=== PATIENT | female | born 1980 | race Caucasian/White ===

== ENCOUNTER 2019-04-17 23:27 | Observation (INO) | payer OTHER, SELFPAY ==
[2019-04-17 23:27] VITALS: BP 144/87; PULSE 91; RESP 16; TEMP 36.9; O2SAT 100
[2019-04-17 23:33] VITALS: BP 144/87; PULSE 67; RESP 17; TEMP 37.2; O2SAT 100
--- NOTE | 2019-04-17 23:33 | DI.CT.S_ITS ---
PROCEDURE: CT HEAD/BRAIN WO CON INDICATIONS: stroke, TPA candidate. facial weakness, arm and leg weakness TECHNIQUE: Noncontrast 4.5 mm thick angled axial sections acquired from the foramen magnum to the vertex, with coronal and sagittal reformats. For radiation dose reduction, the following was used: automated exposure control, adjustment of mA and/or kV according to patient size. COMPARISON: None. FINDINGS: Image quality: Excellent. CSF spaces: Basal cisterns are patent. No extra-axial fluid collections. Ventricles are normal in size and shape. Brain: No midline shift. No intracranial masses or hemorrhage. Robertson-white matter interface is normal. Skull and face: Calvarium and visualized facial bones are intact, without suspicious lesions. Sinuses: Visualized sinuses and mastoids are clear. IMPRESSION: No acute intracranial disease process. Dictated by: Apryl Ricci MD, PhD on 04/18/2019 at 7:21 Approved by: Apryl Ricci MD, PhD on 04/18/2019 at 7:22
--- NOTE | 2019-04-17 23:34 | DI.CT.S_ITS ---
PROCEDURE: CT ANGIO HEAD AND NECK INDICATIONS: right sided stroke findings TECHNIQUE: Pre-contrast 4.5 mm thick sections acquired from the foramen magnum to the vertex. After the administration of intravenous contrast, 1 mm thick sections acquired from the aortic arch through the [place]. Post-contrast 4.5 mm thick sections then re-acquired from the foramen magnum to the vertex. 3-dimensional uylrcrc-lpbknrjek-rmpqnfdhgi (MIP) and/or volume rendering reformats were acquired of the central intracranial vasculature and neck separately. COMPARISON: [facility], CT, CT HEAD/BRAIN WO CON, 04/17/2019, 23:34. FINDINGS: Image quality: Excellent. BRAIN: CSF spaces: Ventricles are normal in size and shape. Basal cisterns are patent. No extra-axial fluid collections. Brain: No midline shift. No intracranial bleeds or masses. Robertson-white matter interface appears intact. Skull and face: Calvarium and facial bones appear intact, without suspicious lesions. Orbits appear normal. Sinuses: Mucous retention cyst versus polyp noted in the right maxillary sinus. The mastoids are clear. HEAD CT ANGIOGRAPHY: Anterior circulation: Intracranial internal carotid arteries are normal in size and flow. The flow within the paired anterior cerebral arteries is normal and symmetric. The flow within the middle cerebral arteries is normal and symmetric. The anterior communicating artery is seen. No aneurysms are seen. Posterior circulation: Visualized portions of the vertebral arteries demonstrate normal caliber, and join to form a normal appearing basilar artery. Flow within the posterior cerebral arteries is normal and symmetric. No aneurysms are seen. NECK CT ANGIOGRAPHY: Carotid system: The great vessels demonstrate a conventional anatomy as they arise from the aortic arch. The origins of the common carotid arteries appear patent. The common carotid arteries demonstrate normal caliber and courses. The bifurcation regions are both widely patent. The internal carotid arteries demonstrate normal calibers and courses. Dural sinuses demonstrate normal postcontrast enhancement. Posterior circulation: The origins of the vertebral arteries both appear widely patent. The more superior extracranial portions of both vertebral arteries also demonstrate normal courses and calibers. They join to form a normal appearing basilar artery. Soft tissues: Visualized neck soft tissues demonstrate no suspicious abnormalities. Bones: No suspicious bony lesions. Visualized cervical spine appears normally aligned. IMPRESSION: 1. No acute intracranial disease process. 2. No large vessel occlusion, vascular stenosis, vascular dissection or aneurysm. Any quantitative measurements of stenosis were performed using NASCET criteria. Dictated by: Apryl Ricci MD, PhD on 04/18/2019 at 8:34 Approved by: Apryl Ricci MD, PhD on 04/18/2019 at 8:39
--- NOTE | 2019-04-17 23:35 | ED.NEUROSD ---
HPI - Neuro Symptoms/Deficit General Chief Complaint: Neuro Symptoms/Deficit Stated Complaint: Left sided numbness and facial droop Time Seen by Provider: 04/17/19 23:28 Source: patient and EMS Mode of arrival: EMS Limitations: no limitations History of Present Illness HPI Narrative: 38-year-old female nonsmoker with history of protein S deficiency presents by EMS with a chief complaint of neurologic symptoms which started promptly this evening at 2215. Code stroke activated. BEFAST positive, LAMS 3. Patient denies any injury or pain. Patient's chief complaints are of right-sided facial numbness, weakness with slurred speech as well as right arm numbness and tingling and right leg tingling. She denies any recent injuries, history of bleeding problems or use of blood thinners. Onset (ago): hour(s) Last Observed Normal: 22:15 Timing confirmed by: spouse Location: speech, right face, right arm and right leg History of same: No Severity: moderate Quality: weak, numb and tingling Relieving factors: none Exacerbating factors: none Context: sudden onset On Anticoagulants: No Associated symptoms: denies other symptoms Treatments Prior to Arrival: none Related Data Home Medications Medication Instructions Recorded Confirmed [B12] 1 tab SUBLINGUAL DIRECTED #0 06/21/11 04/18/19 amitriptyline 10 mg PO PRN PRN 04/18/19 04/18/19 cyanocobalamin (vitamin B-12) 1,000 mcg IM DIRECTED 04/18/19 04/18/19 hydrocodone-acetaminophen 1 tab PO PRN PRN 04/18/19 04/18/19 Allergies Allergy/AdvReac Type Severity Reaction Status Date / Time From FLAGYL Allergy Unknown MEMORY LOSS Uncoded 11/22/17 12:14 PCN (PENICILLIN) Allergy Unknown HIVES Uncoded 11/22/17 12:14 Review of Systems Constitutional Constitutional: Denies chills, Denies fatigue, Denies fever(s), Denies frequent falls, Denies lethargy and Reports weakness Eyes Eyes: Denies change in vision, Denies eye discharge, Denies irritation and Denies loss of vision ENT Ears, Nose, Mouth, and Throat: Denies change in voice, Denies dizziness, Denies neck pain, Denies sore throat and Denies throat swelling Cardiovascular Cardiovascular: Denies chest pain, Denies irregular heart rhythm, Denies lightheadedness, Denies palpitations, Denies dyspnea, Denies dyspnea on exertion and Denies orthopnea Respiratory Respiratory: Denies cough, Denies dyspnea, Denies dyspnea on exertion and Denies wheezing Gastrointestinal Gastrointestinal: Denies abdominal pain, Denies change in bowel habits, Denies diarrhea, Denies nausea and Denies vomiting Genitourinary Genitourinary: Denies hematuria, Denies flank pain, Denies urinary incontinence and Denies urinary urgency Musculoskeletal Musculoskeletal: Denies back pain, Denies muscle weakness, Denies neck pain, Reports numbness and Reports tingling Integumentary/Breasts Skin/Breast: Denies pruritus, Denies erythema, Denies rash and Denies wounds Neurologic Neurologic: Reports abnormal speech, Denies behavioral changes, Denies confusion, Denies dizziness, Denies frequent falls, Denies loss of vision, Reports numbness, Reports tingling and Reports weakness Psychiatric Psychiatric: Denies anxiety, Denies behavioral changes, Denies confusion, Denies depression, Denies homicidal ideation and Denies suicidal ideation Endocrine Endocrine: Denies fatigue, Denies flushing and Denies palpitations Hematologic/Lymphatic Hematologic/Lymphatic: Denies easy bruising Allergic/Immunologic Allergic/Immunologic: Denies urticaria, Denies throat swelling and Denies wheezing [facility] Medical History Corrales's palsy (Acute) Surgical History History of cholecystectomy (Acute) Family History (Updated 04/18/19 @ 02:36 by BRAXTON Goldsmith) Mother CVA (cerebral vascular accident) Father Pancreatic cancer Social History household members: spouse and children Smoking Status: Never smoker alcohol intake: current Exam Narrative Exam Narrative: GENERAL: [38] year old patient appears stated age. Well-nourished, well-developed patient, in mild distress. HEAD: Atraumatic. Normocephalic. EYES: Pupils equal round and reactive. Extraocular motions intact. No scleral icterus. No injection or drainage. ENT: Nose without bleeding, purulent drainage. Throat without erythema, tonsillar hypertrophy or exudate. Airway patent. NECK: Trachea midline. Non tender CARDIOVASCULAR: Regular rate and rhythm without murmurs, gallops, or rubs. RESPIRATORY: Clear to auscultation. Breath sounds equal bilaterally. No wheezes, rales, or rhonchi. GASTROINTESTINAL: Abdomen soft, non-tender, nondistended. EXTREMITIES: No edema or joint tenderness. BACK: Nontender without deformity or crepitance. No flank tenderness. NEURO: AOx3. SKIN: No rash or erythema of visible areas Initial Vital Signs Initial Vital Signs: Vital Signs Temperature 98.5 F 04/17/19 23:27 Pulse Rate 91 H 04/17/19 23:27 Respiratory Rate 16 04/17/19 23:27 Blood Pressure 144/87 H 04/17/19 23:27 Pulse Oximetry 100 04/17/19 23:27 Scores NIH Stroke Scale Level of Conciousness: Alert, keenly responsive Ask month/age: Answers both questions correctly. Open/close eyes, close hand: Performs both tasks correctly Best gaze horizontal: Normal Visual zuleta: No visual loss Facial palsy: Partial paralysis, total or near total paralysis of lower face Left arm drift: No drift for full 10 sec Right arm drift: Drifts down, not to bed Left leg drift: No drift for full 10 sec Right leg drift: Drifts down, not to bed Limb ataxia: Present in one limb Sensory on face/arms/legs: Mild to moderate sensory loss, can tell touch Best language: No aphasia, normal Dysarthria: Mild to mod,some slurring Extinction or inattention: No abnormality Total NIH Stroke scale score: 7 Course Course Course Narrative: tPA Contraindications for Ischemic Stroke from [employer] on 04/17/2019 All calculations should be rechecked by clinician prior to use RESULT SUMMARY: Patient does NOT meet inclusion criteria for tPA. INPUTS: Age ?17 ?> 0 = No Clinical diagnosis of ischemic stroke causing neurological deficit ?> 0 = No Time of symptom onset ?> 0 = No Intracranial hemorrhage on CT ?> 0 = No Clinical presentation suggests subarachnoid hemorrhage ?> 0 = No Neurosurgery, head trauma, or stroke in past 3 months ?> 0 = No Uncontrolled hypertension (>185 mmHg SBP or >110 mmHg DBP) ?> 0 = No History of intracranial hemorrhage ?> 0 = No Known intracranial arteriovenous malformation, neoplasm, or aneurysm ?> 0 = No Active internal bleeding ?> 0 = No Suspected/confirmed endocarditis ?> 0 = No Known bleeding diathesis ?> 0 = No Abnormal blood glucose ( ?> 0 = No Only minor or rapidly improving stroke symptoms ?> 0 = No Major surgery or serious non-head trauma in the previous 14 days ?> 0 = No History of gastrointestinal or urinary tract hemorrhage within 21 days ?> 0 = No Seizure at stroke onset ?> 0 = No Recent arterial puncture at a noncompressible site ?> 0 = No Recent lumbar puncture ?> 0 = No Post myocardial infarction pericarditis ?> 0 = No ?> 0 = No Age >80 years ?> 0 = No History of prior stroke and diabetes ?> 0 = No Any active anticoagulant use (even with INR ?> 0 = No NIHSS >25 ?> 0 = No CT shows multilobar infarction (hypodensity >1/3 cerebral hemisphere) ?> 0 = No Orders Ordered: ED Orders 04/17/19 23:30 Basic Metabolic Panel Stat Complete Blood Count AUTO DIFF Stat Partial Thromboplastin Time Stat Prothrombin Time INR Stat 04/17/19 23:33 CT head/brain wo con Stat EKG-12 Lead Stat 04/17/19 23:34 CT angio head and neck Stat Acetaminophen (Tylenol) 650 mg PO Q6HR PRN PRN Reason: Fever Aspirin (Aspirin Ec) 81 mg PO DAILY TUNDE Atorvastatin Calcium (Lipitor) 80 mg PO BEDTIME TUNDE Clopidogrel Bisulfate (Plavix) 75 mg PO DAILY TUNDE Enoxaparin Sodium (Lovenox) 40 mg SUBCUT DAILY TUNDE Sodium Chloride (Normal Saline 0.45%) 1,000 mls @ 100 mls/hr IV CONT TUNDE Stop: 04/18/19 12:14 Last Admin: 04/18/19 03:16 Dose: 100 mls/hr Documented by: RENATA Discontinued Medications Sodium Chloride (Normal Saline 0.9%) 1,000 mls @ 150 mls/hr IV CONT TUNDE Last Infusion: 04/18/19 03:16 Dose: 0 mls/hr Documented by: Admin: 04/18/19 01:00 Dose: 150 mls/hr Documented by: SLIM Reevaluation(s) Reevaluation #1: NIH Stroke Scale/Score (NIHSS) from [employer] on 04/18/2019 All calculations should be rechecked by clinician prior to use RESULT SUMMARY: 5 points NIH Stroke Scale INPUTS: 1A: Level of consciousness ?> 0 = Alert; keenly responsive 1B: Ask month and age ?> 0 = Both questions right 1C: 'Blink eyes' & 'squeeze hands' ?> 0 = Performs both tasks 2: Horizontal extraocular movements ?> 0 = Normal 3: Visual zuleta ?> 0 = No visual loss 4: Facial palsy ?> 2 = Partial paralysis (lower face) 5A: Left arm motor drift ?> 0 = No drift for 10 seconds 5B: Right arm motor drift ?> 1 = Drift, but doesn't hit bed 6A: Left leg motor drift ?> 0 = No drift for 5 seconds 6B: Right leg motor drift ?> 0 = No drift for 5 seconds 7: Limb Ataxia ?> 0 = No ataxia 8: Sensation ?> 1 = Mild-moderate loss: less sharp/more dull 9: Language/aphasia ?> 0 = Normal; no aphasia 10: Dysarthria ?> 1 = Mild-moderate dysarthria: slurring but can be understood 11: Extinction/inattention ?> 0 = No abnormality tPA (Tissue Plasminogen Activator) Dosing for Stroke Calculator from [employer] on 04/18/2019 All calculations should be rechecked by clinician prior to use RESULT SUMMARY: 7.7 mg Bolus dose, given IV over 1 min 69.1 mg Infusion, given IV over 60 mins 23.2 mg Waste, to be discarded INPUTS: Weight ?> 85.3 kg Consultations Consultation #1: call to [facility] Stroke to discuss TPA given improving symptoms, particularly resolution of leg weakness. Dr. Solis shares opinion that patient meets TPA criteria Time: 00:05 Vital Signs Vital signs: Vital Signs - 8 hr 04/17/19 23:27 04/17/19 23:33 04/17/19 23:56 Temperature 98.5 F 99.0 F 98.2 F Pulse Rate 91 H 67 99 H Respiratory Rate 16 17 16 Blood Pressure 144/87 H Blood Pressure [Left Arm] 144/87 H 127/82 Pulse Oximetry 100 100 100 04/18/19 00:00 04/18/19 00:09 04/18/19 01:04 Temperature 98.2 F Pulse Rate 86 84 87 Respiratory Rate 17 16 19 Blood Pressure Blood Pressure [Left Arm] 132/85 132/85 129/87 Pulse Oximetry 100 100 100 MDM - Neuro Symptoms/Deficit Lab Data Result diagrams: 04/17/19 23:30 04/17/19 23:30 Labs: Lab Results 04/17/19 04/17/19 04/17/19 Range/Units 23:30 23:30 23:30 WBC 8.5 (4.5-11.0) X10^3/uL RBC 4.24 (4.0-5.2) X10^6/uL Hgb 13.4 (12.0-16.0) g/dL Hct 38.8 (36-46) % MCV 91.6 (80-100) fL MCH 31.6 (26-34) PG MCHC 34.5 (30-36) % RDW 12.1 (11.6-14.8) % Plt Count 255 (150-400) X10^3/uL Neut % (Auto) 63.1 (50-75) % Lymph % (Auto) 28.4 (25-40) % Hunt % (Auto) 7.3 (3-14) % Eos % (Auto) 0.9 L (2-4) % Baso % (Auto) 0.3 (0-2) % Neut # (Auto) 5400 (4411-6254) /uL Lymph # (Auto) 2400 (5848-6191) /uL Hunt # (Auto) 600 (0-900) /uL Eos # (Auto) 100 (0-450) /uL Baso # (Auto) 0 (0-100) /uL PT 11.3 (10.1-12.7) SECONDS INR 1.0 (0.9-1.3) APTT 33 (26.4-36.2) SECONDS Sodium 138 (137-145) mmol/L Potassium 3.9 (3.4-5.1) mmol/L Chloride 104 (98-107) mmol/L Carbon Dioxide 26 (22-32) mmol/L BUN 13 (7-17) mg/dL Creatinine 0.60 (0.52-1.04) mg/dL Estimated GFR > 60.0 (>60) mL/min BUN/Creatinine Ratio 21.7 (6-22) Glucose 106 H (70-100) mg/dL Calcium 9.4 (8.4-10.2) mg/dL [facility] Narrative Medical decision making narrative: 38F with known protein S deficiency presents with stroke symptoms in TPA window. Initial NIHSS 7 with improvement to 5. Extensive bedside discussion with patient and regarding TPA pros/cons. Patient has full capacity to make decisions. She clearly understands risks / benefits of TPA and elects NOT to receive TPA despite a thorough discussion of these risks / benefits. She and have had all of their questions answered and they feel comfortable forgoing TPA administration. She is held in ED until expiration of TPA window and then hospitalist consulted for ongoing evaluation. By the time she left the department she did have continued improvement of symptoms as noted in the nursing chart (NIHSS down to 3) Discharge Plan Departure Patient Disposition: Admitted As Inpatient Clinical Impression: Cerebrovascular accident Qualifiers: CVA mechanism: other Qualified Code(s): I63.89 - Other cerebral infarction Discharge Date/Time: 04/18/19 02:25 Admit Date/Time: 04/18/19 01:44 Admit Provider: Robina Sneed
[2019-04-17 23:40] LABS: Add Manual Diff / Slide Review NO; Basophils Absolute Auto 0 /uL (0-100); Basophils Percent Auto 0.3 % (0-2); Eosinophils Absolute Auto 100 /uL (0-450); Eosinophils Percent Auto 0.9 % (2-4); Hematocrit 38.8 % (36-46); Hemoglobin 13.4 g/dL (12.0-16.0); Lymphocytes Absolute Auto 2400 /uL (1100-4500); Lymphocytes Percent Auto 28.4 % (25-40); Mean Corpuscular HGB Conc 34.5 % (30-36); Mean Corpuscular Hemoglobin 31.6 PG (26-34); Mean Corpuscular Volume 91.6 fL (80-100); Monocytes Absolute Auto 600 /uL (0-900); Monocytes Percent Auto 7.3 % (3-14); Neutrophils Absolute Auto 5400 /uL (1500-7000); Neutrophils Percent Auto 63.1 % (50-75); Platelet Count 255 X10^3/uL (150-400); Red Blood Cell Count 4.24 X10^6/uL (4.0-5.2); Red Cell Distribution Width 12.1 % (11.6-14.8); White Blood Cell Count 8.5 X10^3/uL (4.5-11.0)
[2019-04-17 23:45] LABS: Prothrombin Time 11.3 SECONDS (10.1-12.7)
[2019-04-17 23:48] LABS: PTT Partial Thromboplastin Tim 33 SECONDS (26.4-36.2)
[2019-04-17 23:49] LABS: BUN Creatinine Ratio 21.7 (6-22); Blood Urea Nitrogen 13 mg/dL (7-17); Calcium 9.4 mg/dL (8.4-10.2); Carbon Dioxide 26 mmol/L (22-32); Chloride 104 mmol/L (98-107); Estimated Glomerular Filt Rate > 60.0 mL/min (>60); Glucose 106 mg/dL (70-100); HEMOLYSIS < 15 (0-50); Potassium 3.9 mmol/L (3.4-5.1); Sodium 138 mmol/L (137-145)
[2019-04-17 23:56] VITALS: BP 127/82; PULSE 99; RESP 16; TEMP 36.8; O2SAT 100
[2019-04-18] VITALS (9 sets, daily range): BP systolic 110–132; BP diastolic 65–87; PULSE 79–92; RESP 16–20; TEMP 36.1–36.8; O2SAT 100; BMI 35.5
--- NOTE | 2019-04-18 | DI.ECHO.S_ITS ---
[facility]---------+ [facility] +---------+ : : [address] [place] : : : : [id number] : : : : Phone: [phone]+ Echocardiogram Report + + :Name: JEFF JOE Study Date: 04/18/2019 Height: 61 in : :[facility] Weight: 188 lb: : Gender: Female BSA: 1.8 m2 : :: 1980 Age: 38 yrs : :Reason For Study: CVA : : Performed By: Stanislav Hawthorne : :Referring: FRANCY MOHR : + + Interpretation Summary The left ventricle is normal in size. Left ventricular systolic function is normal without focal wall motion abnormalities. The ejection fraction is estimated to be 60-65%. Diastolic parameters suggest probable normal left ventricular diastolic function and normal filling pressures. The right ventricle is normal in size and function. Pulmonary artery pressures cannot be estimated because of the lack of a measurable TR jet velocity. Both atria are normal in size. Injection of contrast documented no interatrial shunt. There is no significant valvular heart disease. The aortic root is normal size. There is no obvious cardiac source of embolus noted on this transthoracic echocardiogram. Follow-up with a SHEMAR is suggested if cardiac source is still suspected. Procedure: A two-dimensional transthoracic echocardiogram with color flow and Doppler was performed. The study quality was technically adequate. There is no prior echocardiogram noted for this patient. A saline contrast injection was performed to assess for cardiac shunting. The patient was in normal sinus rhythm during the exam. Left Ventricle: The left ventricle is normal in size. There is normal left ventricular wall thickness. Left ventricular systolic function is normal without focal wall motion abnormalities. The ejection fraction is estimated to be 60-65%. Diastolic parameters suggest probable normal left ventricular diastolic function and normal filling pressures. Right Ventricle: The right ventricle is normal in size and function. Atria: Both atria are normal in size. Injection of contrast documented no interatrial shunt. Mitral Valve: The mitral valve is normal in structure and function. There is no mitral regurgitation noted. Aortic Valve: The aortic valve is trileaflet. The aortic valve opens well. No aortic regurgitation is present. Tricuspid Valve: The tricuspid valve is normal in structure and function. No tricuspid regurgitation. Pulmonary artery pressures cannot be estimated because of the lack of a measurable TR jet velocity. Pulmonic Valve: The pulmonic valve is normal in structure and function. There is trace pulmonic regurgitation. There is no significant valvular heart disease. Great Vessels: The aortic root is normal size. The dimensions of the ascending aorta are normal. The pulmonary artery is normal size. The IVC is of normal diameter and collapses greater than 50% with a sniff. This suggests a low right atrial pressure of 3 mm Hg. Pericardium/ Pleura There is no pericardial effusion. There is no pleural effusion. MMode/2D Measurements & Calculations LVIDd: 5.3 cm LVOT diam: 2.2 cm LVIDs: 2.8 cm Ao root diam: 2.7 cm FS: 47.4 % asc Aorta Diam: 2.9 cm EPSS: 0.76 cm Ao Arch Diam (Prox Trans): 2.7 cm IVSd: 0.80 cm LVPWd: 0.79 cm LV hansen. diameter/BSA (cm/m^2): 2.9 LV sys. diameter/BSA (cm/m^2): 1.5 LA dimension: 4.1 cm RA long axis: 3.8 cm LA A2 area: 14.0 cm2 RA area: 10.6 cm2 LA A4 area: 19.0 cm2 RA vol: 25.5 ml LA length (vol): 4.5 cm RA : 13.9 ml/m2 LA vol: 49.8 ml IVC diam: 1.1 cm LA vol index: 27.0 ml/m2 Doppler Measurements & Calculations Ao V2 max: 135.6 cm/sec LVOT Max Dhaval: 112.7 cm/sec Ao V2 mean: 101.6 cm/sec LV V1 max P.1 mmHg Ao max P.4 mmHg LV V1 VTI: 23.5 cm Ao mean P.4 mmHg SHAUN(I,D): 3.3 cm2 Ao V2 VTI: 26.5 cm SHAUN(V,D): 3.1 cm2 sev ratio: 0.89 SHAUN indexed to BSA (cm^2/m^2): 1.8 MV E max dhaval: 68.1 cm/sec PA V2 max: 87.1 cm/sec MV A max dhaval: 43.5 cm/sec PA V2 mean: 64.9 cm/sec MV E/A: 1.6 PA mean P.8 mmHg Med Peak E' Dhaval: 12.1 cm/sec PA pr(Accel): 36.6 mmHg E/E' med: 5.6 PA Accel Time: 0.08 sec Lat Peak E' Dhaval: 14.3 cm/sec E/E' lat: 4.7 E/e' average: 5.2 MV dec time: 0.21 sec SV(LVOT): 86.5 ml Reading Physician:11:21 AM
[2019-04-18] MEDS: SODIUM CHLORIDE 0.9% 1,000 ML 150 ML IV (01:00)
--- NOTE | 2019-04-18 01:56 | PC.NURSE ---
report called to Vicky JUNIOR, pt reports improved parasthesia/speech, MD notified
--- NOTE | 2019-04-18 02:23 | PM.HP.1 ---
History of Present Illness History of Present Illness Date Patient Seen: 04/18/19 Time Patient Seen: 01:45 Chief complaint: Left sided numbness and facial droop Narrative: Breanna Martinez is a pleasant 38 y.o. female with Protein C deficiency who presented to the ED after having unusual right sided weakness. Two days ago, she noticed she had right sided eye twitching. She has had a sunburned lip that initially was swollen, then developed a blister on the left side of her lower lip. 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 She then started to experience difficulty with speech. She denied problems with word finding, but had a hard time forming words. Her in the room stated she appeared to have difficulty forming words. She also felt like she was slightly drunk. She was driving and following her home to [place] when she suddenly felt that her right arm and leg was very heavy. She denies a history of blood pressure issues, seizures, or previous episodes of unilateral weakness or paralysis. Her mother had a CVA at age 40 affecting only her speech, and still has some residual speech deficit. In the ED, due to her timing and a NIH score of 5, she met criteria for for thrombolysis therapy and transfer, however after extensive discussions with the ED provider, she declined to undergo thrombolysis or transfer. Patient History Medical History Corrales's palsy (Acute) Surgical History History of cholecystectomy (Acute) Family & Social History Family History (Updated 04/18/19 @ 02:36 by BRAXTON Goldsmith) Mother CVA (cerebral vascular accident) Father Pancreatic cancer Meds Home Medications and Allergies Home Medications Medication Instructions Recorded Confirmed Type [B12] 2,500 #0 06/21/11 History Allergies Allergy/AdvReac Type Severity Reaction Status Date / Time From FLAGYL Allergy Unknown MEMORY LOSS Uncoded 11/22/17 12:14 PCN (PENICILLIN) Allergy Unknown HIVES Uncoded 11/22/17 12:14 Review of Systems Review of Systems ROS Unobtainable: All systems reviewed & are unremarkable except as noted in HPI and below Exam Vital Signs (past 8 hours): - 04/17/19 23:27 04/17/19 23:33 04/17/19 23:56 Temperature 98.5 F 99.0 F 98.2 F Pulse Rate 91 H 67 99 H Respiratory Rate 16 17 16 Blood Pressure 144/87 H Blood Pressure [Left Arm] 144/87 H 127/82 Pulse Oximetry 100 100 100 04/18/19 00:00 04/18/19 00:09 04/18/19 01:04 Temperature 98.2 F Pulse Rate 86 84 87 Respiratory Rate 17 16 19 Blood Pressure Blood Pressure [Left Arm] 132/85 132/85 129/87 Pulse Oximetry 100 100 100 04/18/19 02:02 Temperature Pulse Rate 92 H Respiratory Rate 17 Blood Pressure Blood Pressure [Left Arm] 122/84 Pulse Oximetry 100 Oxygen Delivery Method Room Air Oxygen Flow Rate 0 Narrative Exam Narrative: Gen: Alert, oriented, well-developed 38 y.o. female, mildly anxious HEENT: normocephalic, atraumatic, conjunctiva clear, sclera non-icteric, oral mucosa pink and moist Neck: supple, full ROM Resp: Lungs CTA, non-labored breathing CV: RRR, no murmur or rubs Abd: soft, non-tender, normoactive BTs Skin: no lesions or rashes, dry and intact Neuro: Alert and oriented X 4 w/mild right sided facial droop of her lip, senior credit officer strength of the right hand, 4/5, left hand 5/5. Negative Rhomberg, normal heel to quarles maneuver, able to do finger to nose maneuver. Extremities: moves all 4 extremities, is ambulatory, negative Aramis?s sign Psyche: normal mood and affect. Objective Labs Result Diagrams: 04/17/19 23:30 04/17/19 23:30 Labs: Laboratory Results - last 24 hr 04/17/19 04/17/19 04/17/19 23:30 23:30 23:30 WBC 8.5 RBC 4.24 Hgb 13.4 Hct 38.8 MCV 91.6 MCH 31.6 MCHC 34.5 RDW 12.1 Plt Count 255 Neut % (Auto) 63.1 Lymph % (Auto) 28.4 [place] % (Auto) 7.3 Eos % (Auto) 0.9 L Baso % (Auto) 0.3 Neut # (Auto) 5400 Lymph # (Auto) 2400 [place] # (Auto) 600 Eos # (Auto) 100 Baso # (Auto) 0 PT 11.3 INR 1.0 APTT 33 Sodium 138 Potassium 3.9 Chloride 104 Carbon Dioxide 26 BUN 13 Creatinine 0.60 Estimated GFR > 60.0 BUN/Creatinine Ratio 21.7 Glucose 106 H Calcium 9.4 Assessment & Plan Assessment and plan (1) Cerebrovascular accident: Problem details: Acute and present on admission. - She will have a MRI stroke in the am - Echocardiogram in the am - Start low dose ASA and Plavix Patient is admitted inpatient as her stay is anticipated to exceed 2 midnights. FEN: 0.45 NS at 100 ml/hour, NPO, chemistries in the am. VTE Prophylaxis: Enoxaparin 40 mg subQ daily Disposition: likely discharge to home with Speech Therapy and/or PT Code status: Full code Admission time: 75 minutes Meds reconciled: None Qualifiers: CVA mechanism: other Qualified Code(s): I63.89 - Other cerebral infarction Current visit: Yes Status: Acute Time Spent With Patient Time with patient: 25 - 35 minutes Scores NIHSS Level of Conciousness: Alert, keenly responsive Ask month/age: Answers both questions correctly. Open/close eyes, close hand: Performs both tasks correctly Best gaze horizontal: Normal Visual zuleta: No visual loss Facial palsy: Minor paralysis, flattened nasolabial fold, asymmetry on smiling (minimal asymmetry of the upper lip) Left arm drift: No drift for full 10 sec Right arm drift: No drift for full 10 sec Left leg drift: No drift for full 5 sec Right leg drift: No drift for full 5 sec Limb ataxia: Absent Sensory on face/arms/legs: Normal, no sensory loss Best language: No aphasia, normal Dysarthria: Normal Extinction or inattention: No abnormality Total NIH Stroke scale score: 1 Quality Stroke Contraindication Not Initiating IV-Tpa: Refused Onset of Symptoms Date: 04/18/19 Onset of Symptoms Time: 22:15 Symptom Onset Unknown: No Rehab Services Assessed: Rehabilitation therapy VTE Deep Vein Thrombosis/Pulmonary Embolism Present on Admission: No
[2019-04-18] MEDS: SODIUM CHLORIDE 0.45% 1,000 ML 100 ML IV (03:16)
--- NOTE | 2019-04-18 03:57 | PC.ADMIT ---
Addendum entered by Jonelle Olivo R.N. 04/18/19 04:16: Passed bedside swallow eval with no difficulties. Original Note: 1230 [address] Tate Admission Note: The patient,Breanna Martinez,38 y/o, was given written information regarding hospital policies, unit procedures and contact persons. Patient's smoking status: Never smoker. Vital Signs - 8 hr 04/17/19 23:27 04/17/19 23:33 04/17/19 23:56 Temperature 98.5 F 99.0 F 98.2 F Pulse Rate 91 H 67 99 H Respiratory Rate 16 17 16 Blood Pressure 144/87 H Blood Pressure [Left Arm] 144/87 H 127/82 Pulse Oximetry 100 100 100 04/18/19 00:00 04/18/19 00:09 04/18/19 01:04 Temperature 98.2 F Pulse Rate 86 84 87 Respiratory Rate 17 16 19 Blood Pressure Blood Pressure [Left Arm] 132/85 132/85 129/87 Pulse Oximetry 100 100 100 04/18/19 02:02 04/18/19 02:47 Temperature 97 F L Pulse Rate 92 H 84 Respiratory Rate 17 16 Blood Pressure 132/65 Blood Pressure [Left Arm] 122/84 Pulse Oximetry 100 100 Pt arrived on floor via w/c accompanied by and ED RN, able to transfer self to bed with no difficulties. AxOx3, hx of fall with LOC in last 3 months, no deficits from head injury, able to make needs known. NIH of 2, hx of bells palsy. Pt has a burn blister on lip, otherwise skin is intact, VSS. Pt is a high fall risk d/t hx of falls, weakness on right side of body, bed alarm on and functioning, call light in reach and demonstrate use.
[2019-04-18 06:25] LABS: Add Manual Diff / Slide Review NO; Basophils Absolute Auto 100 /uL (0-100); Basophils Percent Auto 0.6 % (0-2); Eosinophils Absolute Auto 100 /uL (0-450); Eosinophils Percent Auto 0.7 % (2-4); Hematocrit 36.8 % (36-46); Hemoglobin 12.5 g/dL (12.0-16.0); Lymphocytes Absolute Auto 2100 /uL (1100-4500); Lymphocytes Percent Auto 24.4 % (25-40); Mean Corpuscular HGB Conc 33.9 % (30-36); Mean Corpuscular Hemoglobin 31.1 PG (26-34); Mean Corpuscular Volume 91.7 fL (80-100); Monocytes Absolute Auto 700 /uL (0-900); Neutrophils Absolute Auto 5800 /uL (1500-7000); Neutrophils Percent Auto 66.3 % (50-75); Platelet Count 221 X10^3/uL (150-400); Red Blood Cell Count 4.02 X10^6/uL (4.0-5.2); White Blood Cell Count 8.8 X10^3/uL (4.5-11.0)
[2019-04-18 06:43] LABS: Blood Urea Nitrogen 10 mg/dL (7-17); Calcium 8.9 mg/dL (8.4-10.2); Carbon Dioxide 25 mmol/L (22-32); Chloride 105 mmol/L (98-107); Estimated Glomerular Filt Rate > 60.0 mL/min (>60); Glucose 106 mg/dL (70-100); HEMOLYSIS < 15 (0-50); Potassium 4.1 mmol/L (3.4-5.1); Sodium 137 mmol/L (137-145)
[2019-04-18 06:54] LABS: Troponin I < 0.012 ng/mL (0.01-0.034)
[2019-04-18 07:24] LABS: Thyroid Stimulating Hormone 3.34 uIU/mL (0.47-4.68)
--- NOTE | 2019-04-18 08:00 | DI.MRI.S_ITS ---
PROCEDURE: MR STROKE Pre- and post-contrast brain MRI, non-contrast brain MR angiogram, pre- and postcontrast neck MR angiogram INDICATIONS: CVA TECHNIQUE: Brain: Noncontrast axial T1 spin echo, axial T2 fast spin echo, sagittal and axial FLAIR, coronal T2 fast spin echo, axial gradient echo, axial diffusion and ADC through the brain. After the administration of contrast, axial 3D VIBE of the cranial vasculature and brain. Brain MRA: Non-contrast 3-D time of flight MR angiogram, with multiple ufezfmb-dhibpxtmn-hatwfqmhyf (MIP) reformats performed. Neck MRA: Axial and sagittal TruFISP through the neck. Coronal dynamic MR angiogram during administration of contrast in the arterial and venous phases, with 3-dimenstional ndsllnb-zuynosxit-oitjxnfakw (MIP) reformats constructed from subtraction images. COMPARISON: None. FINDINGS: Image quality: Excellent. BRAIN: CSF spaces: Ventricles are normal in size and shape. Basal cisterns are patent. No extra-axial fluid collections. Brain: No intracranial bleeds or mass effects. Robertson-white matter interface is normal. Diffusion weighted images show no acute ischemic insults. Brainstem appears normal. Normal intravascular flow voids are present. A few, very small, punctate foci of increased T2 signal noted in the periventricular white matter which is a nonspecific finding, but likely represents the minimal chronic white matter microvascular ischemic change.. No abnormal intracranial enhancement. Skull and face: Calvarial marrow signal is normal. Orbits appear normal. Sinuses: Large right maxillary sinus mucous retention cyst versus polyp is noted. The mastoids are clear. BRAIN MR ANGIOGRAM: Anterior circulation: Intracranial internal carotid arteries are normal in size and enhancement. The flow within the paired anterior cerebral arteries is normal and symmetric. The flow within the middle cerebral arteries is normal and symmetric. The anterior communicating artery is seen. No stenoses, occlusions, or aneurysms. Posterior circulation: The visualized portions of the vertebral arteries demonstrate normal caliber, and join to form a normal appearing basilar artery. The flow within the posterior cerebral arteries is normal and symmetric. No stenoses, occlusions, or aneurysms. NECK MR ANGIOGRAM: Carotids: Great vessels demonstrate a conventional anatomy as they arise from the aortic arch. The origins of the common carotid arteries appear patent. The calibers and courses of both common carotid arteries are normal. The bifurcation regions appear normal bilaterally. The internal carotid arteries demonstrate normal course and caliber. Posterior circulation: The origins of the vertebral arteries appear patent. More superior portions of both vertebral arteries demonstrate normal course and caliber, and join to form a normal appearing basilar artery. Miscellaneous: Subclavian arteries appear patent. Pre-contrast images through the neck show no soft tissue abnormalities. IMPRESSION: BRAIN MRI: 1. No acute intracranial disease process. 2. No areas of acute or chronic infarction. 3. No intracranial hemorrhage. 4. No abnormal intracranial mass or suspicious postcontrast enhancement BRAIN MR ANGIOGRAM: Negative examination. NECK MR ANGIOGRAM: Negative examination. Dictated by: Apryl Ricci MD, PhD on 04/18/2019 at 11:29 Approved by: Apryl Ricci MD, PhD on 04/18/2019 at 11:36
[2019-04-18] MEDS: ASPIRIN EC 81 MG TABLET PO (08:44)
[2019-04-18] MEDS: ENOXAPARIN 40 MG/0.4 ML SYRINGE SUBCUT (08:44)
--- NOTE | 2019-04-18 09:05 | PC.NURSE ---
AM NOTE - pt up ambul hallway before breakfast, to chair, states had small particle bm this am, bt are present, greater luq,llq, denies nausea, + flatus, hx poor appetite and added plain mohawk yogurt this am and discussed more palatable foods.
--- NOTE | 2019-04-18 09:50 | PC.NURSE ---
Addendum entered by Laurie Lombardo R.N. 04/18/19 14:39: NEURO - describes no return symptoms, ambul to br, voiding, spouse at bedside, ambul with PT, OT and speech in this afternoon. Addendum entered by Laurie Lombardo R.N. 04/18/19 10:38: MRI - to mri via wc, icu informed, tele off. Original Note: AM NOTE - pt is alert, looking at phone, states her r side numbness, tingling and feeling heaviness has resolved, speech is clear, responses appropriate, nih 0, moving extremities easily, ra 100%, hr reg 78, no headache, states did have an occassional r eye twitch that started Monday, not currently observed, echo completed this am.
--- NOTE | 2019-04-18 10:10 | PT.IIE ---
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) Surgical History (Last Reviewed 04/18/19 @ 02:35 by BRAXTON Goldsmith) History of cholecystectomy (Acute) Medical History (Last Reviewed 04/18/19 @ 02:35 by BRAXTON Goldsmith) Corrales's palsy (Acute) Physical Therapy Inpatient Evaluation/Re-Eval M1 PT/OT-IP Prior Functional Status Start: 04/18/19 12:23 Freq: NEEDED Status: Active Protocol: Document 04/18/19 10:10 AB (Rec: 04/18/19 12:38 AB [id number]) Medical Review Prior Functional Status Medical History Reviewed Yes Communication able to make needs known Mobility and Gait pt stated that she is independent with all mobilities and ambulation without AD Social History Household Members spouse,children Living Arrangements House Number of Stairs To Enter/Railing? 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 M2 PT-IP Current Condition Start: 04/18/19 12:23 Freq: NEEDED Status: Active Protocol: Document 04/18/19 10:10 AB (Rec: 04/18/19 12:38 AB [id number]) Physical Therapy Current Condition Current Condition Evaluation Date 04/18/19 Treatment Diagnosis CVA; difficulty in walking Onset Date 04/18/19 M3 PT-IP Subjective Start: 04/18/19 12:23 Freq: NEEDED Status: Active Protocol: Document 04/18/19 10:10 AB (Rec: 04/18/19 12:38 AB [id number]) Subjective Physical Therapy Visit Type Type Initial Evaluation Visit Start Time 10:10 Visit Stop Time 11:44 Total Visit Minutes 21 Notes pt seen for split visit due to needed MRI procedure Number of BUILDING MAINTENANCE SUPERVISOR Visits 0 Physical Therapy Visit Comments Patient Comments pt agreeable to do PT; stated that she feels she is back to normal Therapy Pain Assessment Pain Present Pain Present Denied Pain M4 PT-IP Mobility and Gait Start: 04/18/19 12:23 Freq: NEEDED Status: Active Protocol: Document 04/18/19 10:10 AB (Rec: 04/18/19 12:38 AB [id number]) PT-Bed Mobility Assessment Rolling Level of Assist Independent Supine to Sit Supine to Sit Independent Sit to Supine Sit to Supine Independent Scooting Scooting to Edge of Bed Independent Scooting Up and Down in Bed Independent PT-Transfer Assessment Sit to and From Stand Sit to and from Stand Independent Equipment Transfer Assistive Device Gait Belt Orthotic/Prosthetic Devices or Brace: No Transfers Transfer Destination Toilet Transfer Technique ambulated without AD Transfer Ability Level of Assist Standby Assistance Gait Assessment Gait Gait Assistance Required: Standby Assistance Distance (Feet) 300 Able to Maintain Weight Bearing Status Yes During Gait Assistive Devices Assistive Device None,Gait Belt Orthotic/Prosthetic Devices or Brace: No Gait Deviations General Gait Pattern Within Normal Limits Stair Climbing Assessment Evaluation Level of Assist On Stairs Standby Assistance,1 Person Assistance Devices Stair Climbing Assistive Devices Right Railing Technique/Endurance Stair Climbing Direction Ascend and Descend Stair Climbing Technique Step Over Step Number of Steps Climbed 3 Query Text: Stair Climbing Set # Repetitions (reps) 2 PT-Balance Assessment Sitting Balance and Reactions Static Sitting Balance Ability Normal Dynamic Sitting Balance Ability Normal Standing Balance and Reactions Static Standing Balance Ability Good Dynamic Standing Balance Ability Good Device Used without AD Functional Assessments Functional Tests Tinetti Balance and Gait Assessment which relates to low fall risk M5 PT-IP Objective Assessments Start: 04/18/19 12:23 Freq: NEEDED Status: Active Protocol: Document 04/18/19 10:10 AB (Rec: 04/18/19 12:38 AB [id number]) Orientation Orientation/Cognition Level of Alertness Alert Orientation Name,Age,Birthday,Month,Date, Year,Day of Week,Place, Situation Language Function Ability No Deficits Noted Safety Awareness Understands Safety Issues Memory Description No Deficits Noted Gross Range of Motion Lower Extremity ROM Assessment Within Functional Limits Strength Lower Extremity Strength Assessment Within Functional Limits Coordination Assessment Gross Coordination Gross Coordination WNL Sensation Assessment Sensation Gross Sensation WNL Muscle Tone Muscle Tone WNL Yes M6 PT-IP Treatment Start: 04/18/19 12:23 Freq: NEEDED Status: Active Protocol: Document 04/18/19 10:10 AB (Rec: 04/18/19 12:38 AB [id number]) Physical Therapy Treatment Education Education Provided Safety M7 PT-IP Assessment and Plan Start: 04/18/19 12:23 Freq: NEEDED Status: Active Protocol: Document 04/18/19 10:10 AB (Rec: 04/18/19 12:38 AB [id number]) PT Summary Assessment and Plan Potential Rehabilitation Potential Good Status of Condition at Evaluation Stable Summary Assessment Summary PT eval completed and pt is at PLOF and no further PT intervention indicated at this time. pt plans to go home and spouse will be able to assist pt. pt is cleared to ambulate in room and only requires distant supervision for long distance ambulation for safety. will d/c pt from PT Frequency of Treatment Frequency Of Treatment Discharge Recommendations To Nursing Amount of Assist Needed Standby Assistance Discharge Recommendations PT Discharge Recommendations Home
--- NOTE | 2019-04-18 12:20 | CM.DANOTE ---
DCP: Case received, EMR reviewed. Patient having some testing done. DCP template completed with information currently available. Patient is a 38 year old female who admitted early this morning to the care of the hospitalist team. PCP: Dr. Serrano. Payer: confirmed: Audrey Hanna. Patient came to the hospital via ambulance secondary to having some left sided numbness and facial droop. She was also having some right sided weakness. Patient has history of protein deficiency, as well as [place]. She resides in [place] with her , Rashel. Patient has had an MRI, as well as an echo-cardiogram, today. Added O.T. orders for patient, along with her P.T, per Dr. Corrales. P: DCP to continue to follow closely. Patient will be working with physical as well as occupational therapy today. Patient has been independent, is able to ambulate, according to notes. She will also be seeing hospitalist to go over tests. Jessenia Roy RN/Relay Shop Supervisor
--- NOTE | 2019-04-18 12:53 | SLP.IPNOTE ---
Speech therapy evaluation orders received per stroke protocol. Screened patient who reports all deficits have resolved. Discharge speech therapy orders as patient is back to baseline. 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 She verbalized understanding.
--- NOTE | 2019-04-18 14:25 | OT.IP.EVAL ---
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) Past Medical History (Last Reviewed 04/18/19 @ 02:35 by BRAXTON Goldsmith) Corrales's palsy (Acute) Surgical History (Last Reviewed 04/18/19 @ 02:35 by BRAXTON Goldsmith) History of cholecystectomy (Acute) Occupational Therapy Inpatient Evaluation/Re-Eval M1 PT/OT-IP Prior Functional Status Start: 04/18/19 12:23 Freq: NEEDED Status: Active Protocol: Document 04/18/19 14:25 PJGary (Rec: 04/18/19 14:49 [place] [id number]) Medical Review Prior Functional Status Medical History Reviewed Yes Diet/Fluid Consistency Regular Communication able to make needs known WNL, pt feels her speech is back to normal Mobility and Gait Pt states that she is independent with ambulation without AD. 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 Prior Functional Level (Other details) Pt reports lots of stress in her life including 's recent job change with decreased salary, 2 adult daughters, her father's pancreatic cancer. Social History Household Members spouse,children Living Arrangements House Number of Stairs To Enter/Railing? 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 M2 OT-IP Current Condition Start: 04/18/19 14:34 Freq: Status: Active Protocol: Document 04/18/19 14:25 PJGary (Rec: 04/18/19 14:49 [place] [id number]) Occupational Therapy Current Condition Current Condition Evaluation Date 04/18/19 Treatment Diagnosis assess pt after code stroke Diagnosis Onset Date 04/18/19 M3 OT- IP Subjective and Pain Start: 04/18/19 14:34 Freq: Status: Active Protocol: Document 04/18/19 14:25 PJM (Rec: 04/18/19 14:49 [place] [id number]) OT- Subjective Occupational Therapy Visit Type Type Initial Evaluation Visit Start Time 14:08 Visit Stop Time 14:25 Total Visit Minutes 17 Notes Pt's here this session . Occupational Therapy Visit Comments Patient Comments I feel like I am back to normal now. Could stress cause this? I have a lot of stress in my life right now. Patient/Caregiver Goals to go home today OT Pain Assessment Pain When Pain Assessed After Treatment Pain Present Pain Present Denied Pain M4 OT- IP ADL's Start: 04/18/19 14:34 Freq: Status: Active Protocol: Document 04/18/19 14:25 PJ (Rec: 04/18/19 14:49 [facility] [id number]) OT [id number] General Evaluation Self-Feeding Ability Independent OT ADL-Grooming General Evaluation Grooming Ability Independent Comments OT Grooming Comments standing at sink OT ADL-Oral Care General Eval Oral Care Ability Independent OT ADL-Dressing General Eval Upper Body Dressing Ability Independent OT ADL-Toileting General Evaluation Toileting Ability Independent OT ADL-Bathing Bathing Type Bathing Type Shower Comments OT Bathing Comments no deficits indentified that would interfere M5 OT- IP IADL's Start: 04/18/19 14:34 Freq: Status: Active Protocol: Document 04/18/19 14:25 PJ (Rec: 04/18/19 14:49 [email or web address]) OT-Instrumental Activities of Daily Living Deficits IADL Deficits Identified No Deficits Home Safety Awareness Ability to Problem Solve Emergency Able to Problem Solve Situations Medication Management Medication Management No Deficits Identified Money Management Money Management No Deficits Identified Meal Preparation Meal Preparation No Deficits Identified Spice Fumigator Spice Fumigator No Deficits Identified Driving Driving Comments No deficits identified that would interfere; MD to clear pt medically for driving M6 OT- IP Functional Cognition Start: 04/18/19 14:34 Freq: Status: Active Protocol: Document 04/18/19 14:25 PJ (Rec: 04/18/19 14:49 [email or web address]) Cognitive Factors Limiting Selfcare Function Cognitive Ability Level of Alertness Alert Attention Span Ability Capable of Focused Attention, Capable of Sustained Attention Ability to Follow Commands Able to Follow One Step Commands,Able to Follow Multi- Step Commands Memory Description No Deficits Noted Safety Awareness No Deficits Noted Cognitive Comments Cognitive Assessment Comments Pt appears to be at baseline level of function OT- Vision and Hearing OT- Hearing Assessment OT- Hearing Assessment WFL OT- Vision Assessment Visual Acuity WFL,Contact Lenses Visual Attentiveness WFL Occular Pursuits WFL Visual [place] WFL Visual Spacial Neglect Not Applicable M7 OT- IP Mobility and Balance Start: 04/18/19 14:34 Freq: Status: Active Protocol: Document 04/18/19 14:25 PJM (Rec: 04/18/19 14:49 [facility] [id number]) OT- Bed Mobility Assessment Rolling Level of Assistance Independent Supine to Sit Supine to Sit Assist Independent Sit to Supine Sit to Supine Assist Independent Scooting Scooting to Edge of Bed Independent OT-Transfer Assessment Sit to and From Stand Sit to and from Stand Independent Technique Transfer Destination Bed,Chair,Toilet OT- Gait Assessment Gait Gait Assistance Required: Independent Comments Gait Ability Comments no device per P.T. OT- Balance Assessment Sitting Balance and Reactions Static Sitting Balance Ability Good Dynamic Sitting Balance Ability Good Standing Balance and Reactions Static Standing Balance Ability Good Dynamic Standing Balance Ability Good M8 OT- IP Objective Assessments Start: 04/18/19 14:34 Freq: Status: Active Protocol: Document 04/18/19 14:25 PJM (Rec: 04/18/19 14:49 [facility] [id number]) OT Gross Range of Motion Upper Extremity Range of Motion Assessment Within Functional Limits OT Strength Upper Extremity Strength Assessment Within Functional Limits Hand Improvement Nurse Strength Hand Dominance Right Right Improvement Nurse Strength (lbs) (lbs) 58 Left Improvement Nurse Strength (lbs) (lbs) 48 Comments Strength Comments R Hand Norm: 43-72 L hand Norm: 36-60 OT- Coordination Assessment Upper Extremity Finger to Nose Test Within Functional Limits Finger Tapping Test Within Functional Limits Comments Coordination Comments Pt reports R handwriting is at baseline. OT-Muscle Tone Assessment Muscle Tone WNL Yes OT Sensation Assessment Comments Summary Comments BUE WNL Edema Edema Absent M9 OT- IP Assessment and Plan Start: 04/18/19 14:34 Freq: Status: Active Protocol: Document 04/18/19 14:25 PJ (Rec: 04/18/19 14:49 [facility] [id number]) OT Summary Assessment and Plan Potential Rehabilitation Potential Excellent Analytic Complexity at Evaluation Low Summary Progress Towards Goals Safe For Discharge Assessment Summary Low complexity OT assessment completed. Pt appears to be at baseline with no new deficits identified in vision, BUE sensorimotor function or self care skills. Recommend MD clear pt for return to driving when appropriate. Frequency of Treatment Frequency Of Treatment Discharge Discharge Recommendations OT Discharge Recommendations Home Home Equipment Needs none
--- NOTE | 2019-04-18 15:55 | P.DS_ITS ---
History of Present Illness History of Present Illness Date Patient Seen: 04/18/19 Chief complaint: Left sided numbness and facial droop Narrative: Breanna Martinez is a pleasant 38 y.o. female with Protein C deficiency who presented to the ED after having unusual right sided weakness. Two days ago, she noticed she had right sided eye twitching. She has had a sunburned lip that initially was swollen, then developed a blister on the left side of her lower lip. 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 She then started to experience difficulty with speech. She denied problems with word finding, but had a hard time forming words. Her in the room stated she appeared to have difficulty forming words. She also felt like she was slightly drunk. She was driving and following her home to [place] when she suddenly felt that her right arm and leg was very heavy. She denies a history of blood pressure issues, seizures, or previous episodes of unilateral weakness or paralysis. Her mother had a CVA at age 40 affecting only her speech, and still has some residual speech deficit. In the ED, due to her timing and a NIH score of 5, she met criteria for for thrombolysis therapy and transfer, however after extensive discussions with the ED provider, she declined to undergo thrombolysis or transfer. Discharge Providers Provider Date of admission: 04/18/19 01:44 Discharge Date: 04/18/19 Primary care physician: Luz Maria Serrano DO Consults: 04/18/19 02:05 Consult to Discharge Planning Routine Comment: Consult to Physical Therapy Evaluate & Treat Comment: left sided cva affecting right leg Physician Instructions: Evaluate and Treat Consult to Speech Therapy Evaluate & Treat Comment: left sided sided CVA affecting speech Physician Instructions: Evaluate and treat 04/18/19 09:57 Consult to Occupational Therapy Evaluate & Treat Comment: Physician Instructions: Evaluate and treat Discharge provider: Neelima Corrales MD Summary Hospital Course Discharge Diagnosis: 1. TRANSIENT ISCHEMIC ATTACK 2. CORRALES'S PALSY 3. HISTORY OF THYMOMA 4. Protein C deficient Hospital Course: THE PATIENT IS A 38-YEAR-OLD FEMALE WHO WAS ADMITTED TO THE HOSPITAL FOR BREATH ONSET OF SYMPTOMS TO INCLUDE RIGHT FACIAL DROOP FOR RIGHT FACE NUMBNESS RIGHT ARM AND RIGHT LEG WEAKNESS AND TINGLING. HER SYMPTOMS LASTED ABOUT 2-4 HOURS PER THE SYMPTOMS COMPLETELY RESOLVED. SHE HAD NO DIFFIC ULTY WITH HER SPEECH. NO HEADACHE. The patient had an MRI of her brain which was negative for an acute ischemic event. CTA and CT angio were negative as well. She underwent a cardiac echo which showed no evidence of embolic focus the patient received an aspirin during her hospital stay. 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 The patient has had no further symptoms and was deemed appropriate for discharge home. Status at Discharge Cognitive/behavioral status at discharge: oriented Functional status at discharge: independent ambulation Overall status at discharge: patient is back to baseline Time Spent with Patient Time spent: Less than 30 minutes Exam Vital Signs (past 8 hours): - 04/18/19 08:02 04/18/19 11:00 Temperature 97.9 F Pulse Rate 79 Respiratory Rate 20 Blood Pressure 119/70 Pulse Oximetry 100 100 Oxygen Delivery Method Room Air Oxygen Flow Rate 0 Narrative Exam Narrative: Pleasant female resting comfortably in no obvious distress Lungs clear to auscultate Cardiac exam: Regular rate and rhythm normal S1-S2 Abdomen soft and nontender Extremities: No edema Neurological exam: Cranial nerves 2-12 are intact strength is symmetric and equal, sensation is grossly intact, reflexes are brisk and NIH SS score of 0 Objective Labs Result Diagrams: 04/18/19 05:45 04/18/19 05:45 Labs: Laboratory Results - last 24 hr 04/17/19 04/17/19 04/17/19 23:30 23:30 23:30 WBC 8.5 RBC 4.24 Hgb 13.4 Hct 38.8 MCV 91.6 MCH 31.6 MCHC 34.5 RDW 12.1 Plt Count 255 Neut % (Auto) 63.1 Lymph % (Auto) 28.4 [place] % (Auto) 7.3 Eos % (Auto) 0.9 L Baso % (Auto) 0.3 Neut # (Auto) 5400 Lymph # (Auto) 2400 [place] # (Auto) 600 Eos # (Auto) 100 Baso # (Auto) 0 PT 11.3 INR 1.0 APTT 33 Sodium 138 Potassium 3.9 Chloride 104 Carbon Dioxide 26 BUN 13 Creatinine 0.60 Estimated GFR > 60.0 BUN/Creatinine Ratio 21.7 Glucose 106 H Calcium 9.4 Troponin I TSH 04/18/19 04/18/19 04/18/19 05:45 05:45 05:45 WBC RBC Hgb Hct MCV MCH MCHC RDW Plt Count Neut % (Auto) Lymph % (Auto) [place] % (Auto) Eos % (Auto) Baso % (Auto) Neut # (Auto) Lymph # (Auto) [place] # (Auto) Eos # (Auto) Baso # (Auto) PT INR APTT Sodium 137 Potassium 4.1 Chloride 105 Carbon Dioxide 25 BUN 10 Creatinine 0.50 L Estimated GFR > 60.0 BUN/Creatinine Ratio 20.0 Glucose 106 H Calcium 8.9 Troponin I < 0.012 TSH 3.34 04/18/19 05:45 WBC 8.8 RBC 4.02 Hgb 12.5 Hct 36.8 MCV 91.7 MCH 31.1 MCHC 33.9 RDW 12.0 Plt Count 221 Neut % (Auto) 66.3 Lymph % (Auto) 24.4 L [place] % (Auto) 8.0 Eos % (Auto) 0.7 L Baso % (Auto) 0.6 Neut # (Auto) 5800 Lymph # (Auto) 2100 [place] # (Auto) 700 Eos # (Auto) 100 Baso # (Auto) 100 PT INR APTT Sodium Potassium Chloride Carbon Dioxide BUN Creatinine Estimated GFR BUN/Creatinine Ratio Glucose Calcium Troponin I TSH Discharge Plan Discharge Plan Patient Disposition: Home Discharge Med Rec/Prescriptions Prescriptions: New aspirin 81 mg Tablet,Delayed Release (Dr/Ec) 81 mg PO DAILY 30 Days RF: 0 Continued [B12] tablet 1 tab sublingual DIRECTED Qty: 0 RF: 0 hydrocodone-acetaminophen 5-325 mg tablet 1 tab PO PRN PRN (Reason: Pain (Scale Score 1-3)) RF: 0 amitriptyline 10 mg tablet 10 mg PO PRN PRN (Reason: Sleep) RF: 0 cyanocobalamin (vitamin B-12) 1,000 mcg/mL solution 1,000 mcg IM DIRECTED RF: 0 Follow up/Referrals: Luz Maria Serrano DO [Primary Care Provider] - Provider Discharge Instructions Diet: Diet as Tolerated Activity: as tolerated Visit Report/Discharge Packet Instructions: LEANDRA for Transient Ischemic Attack Visit Report Forms: Stroke Signs & Symptoms Discharge Data Primary Care Provider: Luz Maria Serrano Attending Provider: Robina Sneed Admit Date/Time: 04/18/19 01:44 Discharges patient from system. Discharge Date/Time: 04/18/19 18:47 Quality Stroke Contraindication Not Initiating IV-Tpa: Refused Onset of Symptoms Date: 04/18/19 Onset of Symptoms Time: 22:15 Symptom Onset Unknown: No Rehab Services Assessed: Rehabilitation therapy VTE Deep Vein Thrombosis/Pulmonary Embolism Present on Admission: No
--- NOTE | 2019-04-18 18:45 | PC.NURSE ---
Pt dresses self in preparation for discharge to home. Pt's spouse is present. Telemetry dc'd and iv dc'd intact. Discharge instructions provided to pt and pt's spouse in written and verbal format. No overt weakness or signs of neurological deficit noted. Pt prefers to ambulate to private vehicle. This jingle writer accompanied pt and pt's spouse to vehicle. Pt's personal effects accounted for. Pt left hospital in stable condition accompanied by spouse.
--- NOTE | 2019-05-10 12:11 | PC.NURSE ---
Late entry: Normal saline stopped 04/18 [id number]
== END 2019-04-18 18:47 | disposition home or self-care (01) ==
LOC: ED 04-18 01:34 → AC 04-18 02:22
PROVIDERS: Admitting Provider Nurse Practitioner Family; Emergency Provider Emergency Medicine; PCP Family Medicine; Visit Provider Nurse Practitioner Family
DX: G45.9 Transient cerebral ischemic attack, unspecified (principal); R29.818 Other symptoms and signs involving the nervous system; G51.0 Bell's palsy; D68.59 Other primary thrombophilia
CPT/HCPCS: 36415; 36591; 70450; 70496; 70498; 70548; 70553; 80048; 84443; 84484; 85025; 85610; 85730; 93005; 93306; 96360; 96361; 96372; 97161; 97165; 99284; 99291; G0378; A9579; J1650; J7050; Q9967

== ENCOUNTER 2020-05-11 19:23 | Emergency (ER) | payer OTHER, SELFPAY ==
[2019-04-18 02:38] VITALS: BMI 35.5
--- NOTE | 2020-05-11 | DI.RAD.S_ITS ---
PROCEDURE: XR CALCANEOUS LT MIN 2V INDICATIONS: LEFT HEEL PAIN TECHNIQUE: Two views of the calcaneus were acquired. COMPARISON: None. FINDINGS: Bones: No fractures or dislocations. No suspicious bony lesions. Soft tissues: No suspicious calcifications. Achilles tendon appears normal. IMPRESSION: Normal study. Dictated by: Jt Trevino M.D. on 05/11/2020 at 21:01 Approved by: Jt Trevino M.D. on 05/11/2020 at 21:01
[2020-05-11 19:58] VITALS: BP 140/86; PULSE 71; RESP 16; TEMP 36.6; O2SAT 100; BMI 33.0
--- NOTE | 2020-05-11 20:06 | DI.RAD.S_ITS ---
PROCEDURE: XR ANKLE LT MIN 3V INDICATIONS: heel pain TECHNIQUE: 3 views of the ankle were acquired. COMPARISON: None. FINDINGS: Bones: No fractures or dislocations. Ankle mortise is normally aligned. No suspicious bony lesions. Soft tissues: No tibiotalar joint effusion. Achilles tendon appears normal. IMPRESSION: No acute finding. Dictated by: Jt Trevino M.D. on 05/11/2020 at 20:58 Approved by: Jt Trevino M.D. on 05/11/2020 at 20:59
--- NOTE | 2020-05-12 02:36 | ED.EXTPRO ---
HPI - Extremity Problem <JULIO CÉSAR ReyesP - Last Filed: 05/12/20 02:50> General Chief complaint: Extremity Problem,Nontraumatic Stated complaint: LEFT FOOT UNABLE TO PUT PRESSURE ON IT Time Seen by Provider: 05/11/20 21:16 Source: patient Mode of arrival: Ambulatory Limitations: no limitations History of Present Illness HPI Narrative: This is a 39-year-old female, nonsmoker, with noncontributing medical history presents to ED with non-traumatic left heel pain when she was getting up from a desk and stepped down at 3:00 p.m.. She suddenly felt severe pain on the heel and mild swelling to near Achilles tendon. Patient reports she is able to plantar flex and dorsiflex without difficulty. She reports intact sensation. She denies history of bone spurs. She had taken Motrin at 4:00 p.m. without much improvement. Patient denies taking recent Cipro during last 6 months. She reports taking prednisone for 10 days in November. Related Data Home Medications Medication Instructions Recorded Confirmed [B12] 1 tab SUBLINGUAL DIRECTED #0 06/21/11 04/18/19 amitriptyline 10 mg PO PRN PRN 04/18/19 04/18/19 cyanocobalamin (vitamin B-12) 1,000 mcg IM DIRECTED 04/18/19 04/18/19 hydrocodone-acetaminophen 1 tab PO PRN PRN 04/18/19 04/18/19 Allergies Allergy/AdvReac Type Severity Reaction Status Date / Time From FLAGYL Allergy Unknown MEMORY LOSS Uncoded 11/22/17 12:14 PCN (PENICILLIN) Allergy Unknown HIVES Uncoded 11/22/17 12:14 Review of Systems <JULIO CÉSAR ReyesP - Last Filed: 05/12/20 02:50> Review of Systems Narrative: General: Denies fever, chills, fatigue, malaise, sweats. Respiratory: Denies dyspnea, cough, wheezing, hemoptysis, sputum. Cardiovascular: Denies chest pain, palpitations, orthopnea, edema. Musculoskeletal: See HPI Skin: Denies rash, skin lesions, or other. 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 Head: normocephalic, atraumatic, no scalp lesions, non-tender. ENT: Hearing grossly intact. Airway patent. Neck/Thyroid: neck supple, full range of motion, no visible masses or meningeal signs. No JVD, non-tender without lymphadenopathy. Skin: no suspicious rashes, lesions over visible areas. Warm and dry and appropriate color for ethnicity. Heart: no clubbing, no cyanosis, no edema. Lungs: Breathing even and unlabored. No stridor. No accessory muscles used. Able to speak in full sentences. Chest: normal shape and expansion. Abdomen: non-obese, non-distended. Neurologic: alert and oriented. Cognitive exam, ENVIRONMENTAL COMPLIANCE SPECIALIST and PNS grossly intact on informal exam. Psych: good eye contact, normal affect. Initial Vital Signs Initial Vital Signs: Vital Signs Temperature 97.8 F 05/11/20 19:58 Pulse Rate 71 05/11/20 19:58 Respiratory Rate 16 05/11/20 19:58 Blood Pressure 140/86 05/11/20 19:58 Pulse Oximetry 100 05/11/20 19:58 Extrem Left lower extremity: ankle Details: normal to inspection, no edema and normal ROM; no tenderness and achilles tendon exam normal and foot Details: normal capillary refill, normal to inspection, tenderness Location: of the plantar foot (heel), toes with normal ROM, edema, vascular exam Details: dorsalis pedis pulse present and normal capillary refill, motor-sensory exam Details: light-touch normal and other (posterior foot near Achilles tendon); no unusual warmth, no ecchymosis and no crepitus <DO Zehra Michael Last Filed: 05/12/20 03:13> Initial Vital Signs Initial Vital Signs: Vital Signs Temperature 97.8 F 05/11/20 19:58 Pulse Rate 71 05/11/20 19:58 Respiratory Rate 16 05/11/20 19:58 Blood Pressure 140/86 05/11/20 19:58 Pulse Oximetry 100 05/11/20 19:58 Procedures <BRAXTON Reyes - Last Filed: 05/12/20 02:50> Orthopedic Splinting/Casting Injury #1: Side: left Lower Extremity Injury Location: foot Lower Extremity Immobilizer: Bishop wrap Post splinting neuro exam: intact Post splinting vascular exam: intact Placed by: Nursing Scores <BRAXTON Reyes - Last Filed: 05/12/20 02:50> GCS [place] coma scale eye opening: Spontaneous Ayesha coma scale verbal response: Orientated Ayesha coma scale motor response: Obey commands Ayesha coma scale total score: 15 Course <BRAXTON Reyes - Last Filed: 05/12/20 02:50> Orders Ordered: ED Orders 05/11/20 20:06 XR ankle LT min 3V Stat Vital Signs Vital signs: Vital Signs - 8 hr 05/11/20 19:58 Temperature 97.8 F Pulse Rate 71 Respiratory Rate 16 Blood Pressure 140/86 Pulse Oximetry 100 <Maico Kowalski DO - Last Filed: 05/12/20 03:13> Orders Ordered: ED Orders 05/11/20 20:06 XR ankle LT min 3V Stat Vital Signs Vital signs: Vital Signs - 8 hr 05/11/20 19:58 Temperature 97.8 F Pulse Rate 71 Respiratory Rate 16 Blood Pressure 140/86 Pulse Oximetry 100 MDM - Extremity (Nontraumatic) <BRAXTON Reyes - Last Filed: 05/12/20 02:50> Differential Diagnosis Differential diagnosis: Likely other (Ankle fracture, heel fracture, Achilles tendon injury, ligamentous injury) Medical Records Attestation: I reviewed the patient's medical records. Imaging Data XR-Ankle LT: Radiologist's Impression: [address] [place] [address] XRay Report Signed Patient: Breanna Martinez AMR#: [id number] : 1980Acct:[id number] Age/Sex: 39 / FDate of Service: 05/11/20 Loc: ED Accession Number: [id number] Procedure: XR ankle LT min 3V Ordering Provider: Maico Kowalski D.O. PROCEDURE: XR ANKLE LT MIN 3V INDICATIONS: heel pain TECHNIQUE: 3 views of the ankle were acquired. COMPARISON: None. FINDINGS: Bones: No fractures or dislocations. Ankle mortise is normally aligned. No suspicious bony lesions. Soft tissues: No tibiotalar joint effusion. Achilles tendon appears normal. IMPRESSION: No acute finding. Dictated by: Jt Trevino M.D. on 05/11/2020 at 20:58 Approved by: Jt Trevino M.D. on 05/11/2020 at 20:59 XR-Calcaneus LT: Radiologist's Impression: [address] [address] XRay Report Signed Patient: Breanna Martinez AMR#: [id number] : 1980Acct:[id number] Age/Sex: 39 / FDate of Service: 05/11/20 Loc: ED Accession Number: [id number] Procedure: XR calcaneus LT min 2V Ordering Provider: JUAN Whitehead PROCEDURE: XR CALCANEOUS LT MIN 2V INDICATIONS: LEFT HEEL PAIN TECHNIQUE: Two views of the calcaneus were acquired. COMPARISON: None. FINDINGS: Bones: No fractures or dislocations. No suspicious bony lesions. Soft tissues: No suspicious calcifications. Achilles tendon appears normal. IMPRESSION: Normal study. Dictated by: Jt Trevino M.D. on 05/11/2020 at 21:01 Approved by: Jt Trevino M.D. on 05/11/2020 at 21:01 [facility] Narrative Medical decision making narrative: Physical exam unremarkable. Intact sensation, pedal pulse with brisk cap refill. No significant swelling or deformity noted. Intake range motion with plantar flexion dorsal flexion. X-ray tests on left ankle and calcaneus views without acute findings. Patient offered Bishop wrap on affected foot for comfort as needed. Patient states she has a set of crutches at home she can use as needed for weight-bearing. Advised to use [id number] Tylenol and Motrin as needed discomfort with RICE therapy. Advised to follow-up if pain persists longer than expected and repeated further imaging test as needed. Patient verbalized understanding in agreement with treatment plan. Discharge Plan Departure Patient Disposition: Home Clinical Impression: Heel pain Qualifiers: Laterality: left Qualified Code(s): M79.672 - Pain in left foot Discharge Date/Time: 05/11/20 21:55 Instructions: DI for Foot Pain Activity Restrictions/Additional Instructions: You have been diagnosed with [left heel pain. x-ray tests on calcaneus and ankle without acute findings with normal alignment and Achilles tendon. Please use Bishop wrap as needed for discomfort. Use crutches that you have at home as needed for pain during weight-bearing]. What to do: *Take your medications as directed. Please take [id number] Tylenol and or Motrin as needed for discomfort. Tylenol 650-1000 mg up to 3 times a day. Ibuprofen 400-600 mg up to 3 to 4 times a day as needed for pain with food to decrease GI irritation. Use cool pack and elevation for next couple of days. *Follow up with your primary care provider in 2-3 days, call for an appointment. Let them know you were seen in the ED and that we asked you to be seen in follow up. *Return to ED if you have any new, worsening, or concerning symptoms, such as [worsening pain, weakness/numbness/tingling on affected foot, foot drops, or any acute concerns]. Prescriptions: No Action [B12] tablet 1 tab sublingual DIRECTED Qty: 0 RF: 0 hydrocodone-acetaminophen 5-325 mg tablet 1 tab PO PRN PRN (Reason: Pain (Scale Score 1-3)) RF: 0 amitriptyline 10 mg tablet 10 mg PO PRN PRN (Reason: Sleep) RF: 0 cyanocobalamin (vitamin B-12) 1,000 mcg/mL solution 1,000 mcg IM DIRECTED RF: 0 Referrals: Luz Maria Serrano DO [Primary Care Provider] - <Maico Kowalski DO - Last Filed: 05/12/20 03:13> Cosign ED Attending Cossalimaature Attestation: Dr Kowalski Co-Sign Statement: I was available for consultation during this patient's emergency department visit. This chart is signed by myself for administrative purposes only. I did not have direct contact with this patient during this visit. They were seen independently by the APC.
== END 2020-05-11 21:55 | disposition home or self-care (01) ==
PROVIDERS: Emergency Provider Nurse Practitioner Family; PCP Family Medicine
DX: M79.672 Pain in left foot (principal)
CPT/HCPCS: 73610; 73650; 99283

== ENCOUNTER 2021-07-15 10:30 | Outpatient (RCR) | payer OTHER, SELFPAY ==
[2019-04-18 02:38] VITALS: BMI 35.5
--- NOTE | 2021-06-04 12:13 | ST.OPIE ---
Visit Care Team Role Provider Type Luz Maria Serrano DO Family Provider Non-Staff Primary Care Provider Specialty: Medical Address: [address] [place] [address], [id number] Email: Waqas Rivas MD Attending Provider Physician Referring Provider Specialty: Ear, Nose, Throat Address: [address] [place] [address], [id number] Email: [email or web address] Speech-Language Pathology Initial Evaluation [employer] Clinical Swallow Evaluation Start: 06/04/21 08:29 Freq: Status: Active Protocol: Document 06/04/21 09:12 CHEYANNE (Rec: 06/04/21 09:29 ZS [id number]) Clinical Swallow Evaluation Session Time Visit Start Time 08:30 Visit Stop Time 09:10 Total Visit Minutes 40 Visit Information Visit Number Initial Evaluation Plan of Care Dates 06/04/2021 - 11/11/2020 Insurance Information [facility] Referral Referring Provider Dr. Serrano Reason for Referral Difficulty swallowing with fluctuating severity over past 2-5 years. Setting Assessment Location Outpatient Care Visit Type Note Type Initial evaluation Next Note Type Next Note Type Treatment Note Patient Information Identification Type Name History Breanna is a 40 year old woman with a history of bells palsy, mast cell disorder, nasal congestion due to a deviated septum, and dysphagia. She has had difficulty swallowing for the past 2-5 years with fluctuating severity. Breanna had a stroke in 2019, though swallowing difficulty pre- dated stroke symptoms. Subjective Observations Breanna reported she had one this week and another one this weekend. She added that her family is currently sick. Breanna shared that she had a stroke in 2019, but swallowing difficulty pre- dated the stroke. She added that her mother had at 40 years old due to a stroke. Breanna reported feeling like she is swallowing past a balloon when she swallows food and liquid. She added that her symptoms get worse through the day and in the evenings she avoids thick foods (e.g., pudding, peanut butter) and dry foods (e.g., crackers), because it feels like they get stuck in the back of her mouth/throat. She said she talks a lot for work and sometimes works 16 hours in a day. Breanna added that she needs to concentrate when she is swallowing, even with saliva and it takes a lot of effort to swallow. She sips water to help swallow saliva and avoids thick/dry foods when she is having difficulty swallowing. Breanna reported no pain when swallowing. 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 Reported by Patient Pain Intensity 6 Pain Scale Used Numeric (0 - 10) Location Right Foot Other Symptoms Difficulty swallowing liquids, Difficulty swallowing solids, Food gets stuck Current Diet Regular,Thin liquids Baseline Feeding Method Independent in self-feeding Objective Assessment Mental Status Alert,Responsive,Cooperative Oral Integrity WFL Dentition Within normal limits Lip Function Within normal limits Observation of Lips at Rest Symmetrical Pucker Within normal limits Alternating Pucker/Lip Retraction Within normal limits Tongue Function Within normal limits Observations of Tongue at Rest Within normal limits Tongue Protrusion Within normal limits Tongue Lateralization Within normal limits Jaw Function Within normal limits Observations of Jaw at Rest Within normal limits Jaw Opening Within normal limits Jaw Closing Within normal limits Hard/Soft Palate Function Within normal limits Observations of Hard/Soft Palate Within normal limits Comment Completed oral mechanism exam. Breanna exhibited tongue, lip, and jaw strength and ROM WNL. Structures were symmetrical at rest and in motion with the exception of her uvula, which deviated to the left at rest and in motion. No swelling or discoloration noted, though Breanna has fissures on her tongue. Structure and function of oral mechanism appears WNL for the purposes of feeding and swallowing. Food and Liquid Trials Position During Assessment Upright (90 degrees),In chair Liquids Trialed Thin Solids Trialed Puree,Dysphagia Mechanical, Mechanical Soft,Regular Administration Type Tea spoon,Cup consecutive sips ,Self-feeding Oral Impairment Moderately impaired Oral Phase Comments Breanna exhibited slow, coordinated mastication and reported effortful a/p propulsion on 2 solid trials. Effort observed across all solid trials during mastication and a/p propulsion , though unable to determine a consistent cause of difficulty. No anterior loss or residue noted for any trials. Slow mastication may contribute to low endurance due to prolonged time required to complete meals. Pharyngeal Impairment Severely impaired Pharyngeal Phase Comments Reduced hyolaryngeal elevation and excursion for dry swallow and cup sip of thin liquid. Breanna reported feeling like she needed to push the bolus as it got stuck in the back of her mouth/top of her throat . She described it as a swollen uvula or balloon that she needed to push the food past. Difficulty reported on apple sauce, pudding, pudding with catie crackers, and catie cracker. No overt signs or symptoms of aspiration observed. Fatigue/Endurance Severe fatigue Comment Breanna reports increasing fatigue across a day, with greater difficulty in the evening than in the morning. She added that in the evenings , she will avoid thick or dry foods that she could eat more easily in the morning. No fatigue noted during assessment, though limited trials were completed. Strategies Attempted Effortful swallow Response/Comments Demonstrated, described, and practiced effortful swallow on dry swallow. Breanna will try this technique at home to see if it makes a difference in endurance and swallow ease across a day. Findings Swallowing Function Oropharyngeal phase dysphagia Severity of Swallow Impairment Severely impaired Contributing Factors to Swallow Excessive pharyngeal residue Impairment Prognosis Good Based on Cognitive status,Family support,Age,Comorbidities, Duration of symptoms/severity Comment Breanna presents with severe oropharyngeal dysphagia characterized by food getting stuck in the back of her mouth/throat and effortful manipulation of bolus during oral prepatory phase. Recommend Modified Barium Swallow Study (MBSS) to obtain more information regarding pharyngeal phase of swallow to aid in goal development and therapeutic activities. Impact on Safety and Functioning Risk for aspiration Recommendations Instrumental Assessment Yes Swallowing Treatment Yes Frequency Once a week Duration 45 minutes Recommended Solids Regular Recommended Liquids Thin Safety Precautions/Swallowing Feed only when alert,Reduce Recommendations distractions,Remain upright ( 90 degrees) during all oral intake,Upright position at least 30 minutes after meals, Small bites and sips when eating,Slow rate; swallow between bites Medication Recommendations As Tolerated Discharge Recommendations Home Education Patient/Caregiver Education Described results of evaluation,Patient expressed understanding of evaluation, Patient expressed agreement with goals & treatment plans, Patient expressed understanding of safety precautions,Patient expressed understanding of feeding recommendations,Patient requires further education/ training Goals Short-term Goals 1. Breanna will participate in an MBSS. 2. Breanna will perform safe swallow strategies with oral intake independently to reduce risk of aspiration. 3. Breanna will perform exercises to increase strength , coordination, and ROM of swallow musculature independently to reduce risk of aspiration and increase comfort with oral intake. Long-term Goals Breanna will safely tolerate least restrictive diet to meet her nutrition and hydration needs.
--- NOTE | 2021-06-04 12:17 | ST.OPIE ---
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 Serrano Reason for Referral Difficulty swallowing with fluctuating severity over past 2-5 years. Setting Assessment Location Outpatient Care Visit Type Note Type Initial evaluation Next Note Type Next Note Type Treatment Note Patient Information Identification Type Name History Breanna is a 40 year old woman with a history of bells palsy, mast cell disorder, nasal congestion due to a deviated septum, and dysphagia. She has had difficulty swallowing for the past 2-5 years with fluctuating severity. Breanna had a stroke in 2019, though swallowing difficulty pre- dated stroke symptoms. Subjective Observations Breanna reported she had one this week and another one this weekend. She added that her family is currently sick. Breanna shared that she had a stroke in 2019, but swallowing difficulty pre- dated the stroke. She added that her mother had at 40 years old due to a stroke. Breanna reported feeling like she is swallowing past a balloon when she swallows food and liquid. She added that her symptoms get worse through the day and in the evenings she avoids thick foods (e.g., pudding, peanut butter) and dry foods (e.g., crackers), because it feels like they get stuck in the back of her mouth/throat. She said she talks a lot for work and sometimes works 16 hours in a day. Breanna added that she needs to concentrate when she is swallowing, even with saliva and it takes a lot of effort to swallow. She sips water to help swallow saliva and avoids thick/dry foods when she is having difficulty swallowing. Breanna reported no pain when swallowing. 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 Reported by Patient Pain Intensity 6 Pain Scale Used Numeric (0 - 10) Location Right Foot Other Symptoms Difficulty swallowing liquids, Difficulty swallowing solids, Food gets stuck Current Diet Regular,Thin liquids Baseline Feeding Method Independent in self-feeding Objective Assessment Mental Status Alert,Responsive,Cooperative Oral Integrity WFL Dentition Within normal limits Lip Function Within normal limits Observation of Lips at Rest Symmetrical Pucker Within normal limits Alternating Pucker/Lip Retraction Within normal limits Tongue Function Within normal limits Observations of Tongue at Rest Within normal limits Tongue Protrusion Within normal limits Tongue Lateralization Within normal limits Jaw Function Within normal limits Observations of Jaw at Rest Within normal limits Jaw Opening Within normal limits Jaw Closing Within normal limits Hard/Soft Palate Function Within normal limits Observations of Hard/Soft Palate Within normal limits Comment Completed oral mechanism exam. Breanna exhibited tongue, lip, and jaw strength and ROM WNL. Structures were symmetrical at rest and in motion with the exception of her uvula, which deviated to the left at rest and in motion. No swelling or discoloration noted, though Breanna has fissures on her tongue. Structure and function of oral mechanism appears WNL for the purposes of feeding and swallowing. Food and Liquid Trials Position During Assessment Upright (90 degrees),In chair Liquids Trialed Thin Solids Trialed Puree,Dysphagia Mechanical, Mechanical Soft,Regular Administration Type Tea spoon,Cup consecutive sips ,Self-feeding Oral Impairment Moderately impaired Oral Phase Comments Breanna exhibited slow, coordinated mastication and reported effortful a/p propulsion on 2 solid trials. Effort observed across all solid trials during mastication and a/p propulsion , though unable to determine a consistent cause of difficulty. No anterior loss or residue noted for any trials. Slow mastication may contribute to low endurance due to prolonged time required to complete meals. Pharyngeal Impairment Severely impaired Pharyngeal Phase Comments Reduced hyolaryngeal elevation and excursion for dry swallow and cup sip of thin liquid. Breanna reported feeling like she needed to push the bolus as it got stuck in the back of her mouth/top of her throat . She described it as a swollen uvula or balloon that she needed to push the food past. Difficulty reported on apple sauce, pudding, pudding with catie crackers, and catie cracker. No overt signs or symptoms of aspiration observed. Fatigue/Endurance Severe fatigue Comment Breanna reports increasing fatigue across a day, with greater difficulty in the evening than in the morning. She added that in the evenings , she will avoid thick or dry foods that she could eat more easily in the morning. No fatigue noted during assessment, though limited trials were completed. Strategies Attempted Effortful swallow Response/Comments Demonstrated, described, and practiced effortful swallow on dry swallow. Breanna will try this technique at home to see if it makes a difference in endurance and swallow ease across a day. Findings Swallowing Function Oropharyngeal phase dysphagia Severity of Swallow Impairment Severely impaired Contributing Factors to Swallow Excessive pharyngeal residue Impairment Prognosis Good Based on Cognitive status,Family support,Age,Comorbidities, Duration of symptoms/severity Comment Breanna presents with severe oropharyngeal dysphagia characterized by food getting stuck in the back of her mouth/throat and effortful manipulation of bolus during oral prepatory phase. Recommend Modified Barium Swallow Study (MBSS) to obtain more information regarding pharyngeal phase of swallow to aid in goal development and therapeutic activities. Impact on Safety and Functioning Risk for aspiration Recommendations Instrumental Assessment Yes Swallowing Treatment Yes Frequency Once a week Duration 45 minutes Recommended Solids Regular Recommended Liquids Thin Safety Precautions/Swallowing Feed only when alert,Reduce Recommendations distractions,Remain upright ( 90 degrees) during all oral intake,Upright position at least 30 minutes after meals, Small bites and sips when eating,Slow rate; swallow between bites Medication Recommendations As Tolerated Discharge Recommendations Home Education Patient/Caregiver Education Described results of evaluation,Patient expressed understanding of evaluation, Patient expressed agreement with goals & treatment plans, Patient expressed understanding of safety precautions,Patient expressed understanding of feeding recommendations,Patient requires further education/ training Goals Short-term Goals 1. Breanna will participate in an MBSS. 2. Breanna will perform safe swallow strategies with oral intake independently to reduce risk of aspiration. 3. Breanna will perform exercises to increase strength , coordination, and ROM of swallow musculature independently to reduce risk of aspiration and increase comfort with oral intake. Long-term Goals Breanna will safely tolerate least restrictive diet to meet her nutrition and hydration needs.
--- NOTE | 2021-06-11 14:18 | ST.IPDYTX ---
Visit Care Team Role Provider Type Luz Maria Serrano DO Family Provider Non-Staff Primary Care Provider Specialty: Medical Address: [address] [place] [address], [address] Email: Waqas Rivas MD Attending Provider Physician Referring Provider Specialty: Ear, Nose, Throat Address: [address] [place] [address], [address] Email: [email or web address] VENEER MARKER Dysphagia Treatment VENEER MARKER Dysphagia Treatment Start: 06/11/21 13:26 Freq: Status: Active Protocol: Document 06/11/21 13:26 ZS (Rec: 06/11/21 13:31 ZS [id number]) Dysphagia Treatment Session Time Visit Start Time 11:30 Visit Stop Time 12:10 Total Visit Minutes 40 Visit Information Visit Number 1 Plan of Care Dates 06/04/2021 - 11/11/2021 Insurance Information [facility] Setting Assessment Location Outpatient Care Visit Type Note Type Treatment Note Next Note Type Next Note Type Treatment Note Patient Information Identification Type Name Subjective Observations Breanna arrived on time and participated in all session activities. She reported she has been trying the effortful swallow technique at home and swallowing has been about the same, but she has been paying more attention to her swallows as a result. She added that sticky textures (e.g., peanut butter) and saliva are the most difficult things to eat and that foods with larger chunks are easier. Treatment Liquids Trialed Thin Solids Trialed Puree Administration Type Tea Spoon,Cup Single Sip,Self- Feeding Oral Strategies Upright at 90 degrees Pharyngeal Strategies Sitting Upright (90 deg), Effortful Swallow,Small Bites and Sips Treatment Activities Practiced effortful swallow with applesauce, pudding, dry swallow, and water. Discussed and practiced tongue exercises for home practice. Assessment Patient Response to Treatment Excellent Rehab Potential Good Assessment of Improvement Breanna reported increased anxiety when working on effortful swallow as she feels like she is going to choke when she is unable to move food posteriorly in her mouth. Discussed starting effortful swallow in oral cavity. Breanna reported improvement in swallow and decreased anxiety when implementing effortful swallow in oral cavity and continuing effort through entire swallow. Breanna reported feeling like food was falling off her tongue into the sides of her mouth when eating. Discussed and practiced tongue exercises to increase Breanna's ability to contain bolus in her oral cavity. Breanna reported it is much easier to move her tongue and apply pressure on the right than on the left. Diet Recommendations Recommendations Continue Current Diet Liquids Order Thin Diet Order Regular Medication Recommendations As Tolerated Aspiration Precautions Recommended Precautions Upright at 90 Degrees,Small Bites/Sips,Effortful Swallow Treatment Plan Appropriate for Continued Therapy Yes Therapy Recommendations Continue with oral motor exercises and adjust as needed once Breanna completes MBSS. Dysphagia Goals 1. Breanna will participate in an MBSS. 2. Breanna will perform safe swallow strategies with oral intake independently to reduce risk of aspiration. 3. Breanna will perform exercises to increase strength , coordination, and ROM of swallow musculature independently to reduce risk of aspiration and increase comfort with oral intake.
--- NOTE | 2021-06-29 12:32 | ST.IPDYTX ---
Visit Care Team Role Provider Type Luz Maria Serrano DO Family Provider Non-Staff Primary Care Provider Specialty: Medical Address: [address] [place] [address], [address] Email: Waqas Rivas MD Attending Provider Physician Referring Provider Specialty: Ear, Nose, Throat Address: [address] [place] [address], [address] Email: [email or web address] HEATING AND BLENDING SUPERVISOR Dysphagia Treatment HEATING AND BLENDING SUPERVISOR Dysphagia Treatment Start: 06/11/21 13:26 Freq: Status: Active Protocol: Document 06/29/21 12:18 ZS (Rec: 06/29/21 12:32 ZS [id number]) Dysphagia Treatment Session Time Visit Start Time 11:35 Visit Stop Time 12:15 Total Visit Minutes 40 Visit Information Visit Number 2 Plan of Care Dates 06/04/2021 - 11/11/2021 Setting Assessment Location Outpatient Care Visit Type Note Type Treatment Note Next Note Type Next Note Type Treatment Note Patient Information Identification Type Name Subjective Observations Breanna arrived 5 minutes late and participated in all session activities. Breanna reported at her last dentist appointment her dental hygenist saw cheek ties that create a shelf in her mouth where Breanna feels like food gets stuck when it falls off her tongue. She reported she has been able to eat a variety of textures throughout the day if she is using the effortful swallow. She added that she does not feel as scared of choking anymore when she is experiencing difficulty swallowing. Breanna reported she has been able to eat bread as long as she takes small bites and alternates with water. She added that she has increased difficulty swallowing when she has congestion or if her mouth feels sore (she indicated soreness is often behind her ear and along part of her jawline) from talking or eating larger meals during the day. Treatment Liquids Trialed Thin Solids Trialed Puree,Mechanical Soft,Regular Administration Type Tea Spoon,Cup Single Sip,Self- Feeding Oral Strategies Upright at 90 degrees Pharyngeal Strategies Sitting Upright (90 deg), Effortful Swallow,Small Bites and Sips Treatment Activities Completed partial OME. Practiced effortful swallow with applesauce, catie cracker, peaches, dry swallow, and water. Discussed upcoming MBSS and continued use of effortful swallow at home. Assessment Patient Response to Treatment Excellent Rehab Potential Good Assessment of Improvement Tongue ROM was WNL. Mild deviation of tongue tip to left when protruding tongue downwards (e.g., touch your chin with your tongue), though this does not appear to impact swallowing. No tongue fasciculations observed. Bilateral cheek ties observed. Breanna added that she had an upper lip tie when she was younger, but it was clipped. Trialed 2 spoonfuls of applesauce, 1 spoonful of peaches, 1 piece of catie cracker, 1 sip of water, and 3 dry swallows with effortful swallow. Breanna reported multiple swallows to get food down when swallowing here and at home. She estimates about 2 -3 swallows per bite to clear a bolus from her oral cavity. Breanna added that dry solids ( e.g., catie cracker, dry bread, etc.) or foods she needs to chew take more swallows as she needs to recollect the bolus prior to swallowing. Breanna reported the sensation of food sitting on the back of her tongue but not triggering a swallow in addition to pushing food past a bubble in her throat when swallowing. No overt signs/ symptoms of aspiration observed today. Multiple swallows observed for catie cracker and applesauce. Breanna reported the most difficulty with swallowing saliva, adding that most food is going well now as long as she takes small bites, drinks water, and uses effortful swallowing while eating/drinking. Diet Recommendations Recommendations Continue Current Diet Liquids Order Thin Diet Order Regular Medication Recommendations As Tolerated Aspiration Precautions Recommended Precautions Upright at 90 Degrees,Small Bites/Sips,Effortful Swallow Treatment Plan Appropriate for Continued Therapy Yes Therapy Recommendations Continue with oral motor exercises and adjust as needed once Breanna completes MBSS. Dysphagia Goals 1. Breanna will participate in an MBSS. 2. Breanna will perform safe swallow strategies with oral intake independently to reduce risk of aspiration. 3. Breanna will perform exercises to increase strength , coordination, and ROM of swallow musculature independently to reduce risk of aspiration and increase comfort with oral intake.
--- NOTE | 2021-07-15 11:32 | ST.IPDYTX ---
Visit Care Team Role Provider Type Luz Maria Serrano DO Family Provider Non-Staff Primary Care Provider Specialty: Medical Address: [address] [place] [address], [address] Email: Waqas Rivas MD Attending Provider Physician Referring Provider Specialty: Ear, Nose, Throat Address: [address] [place] [address], [address] Email: [email or web address] APPLIANCE TECHNICIAN Dysphagia Treatment HOME APPLIANCE TECHNICIAN Dysphagia Treatment Start: 06/11/21 13:26 Freq: Status: Active Protocol: Document 07/15/21 11:21 ZS (Rec: 07/15/21 11:31 ZS [id number]) Dysphagia Treatment Session Time Visit Start Time 11:30 Visit Stop Time 12:05 Total Visit Minutes 35 Visit Information Visit Number 3 Plan of Care Dates 06/04/2021 - 11/11/2021 Setting Assessment Location Outpatient Care Visit Type Note Type Treatment Note Next Note Type Next Note Type Treatment Note Patient Information Identification Type Name Subjective Observations Breanna arrived on time and participated in all session activities. Breanna reported [facility], with the exception of a dense, dry roll. She added that she has been doing effortful swallows for every swallow and that helps reduce anxiety and number of swallows to get food down. Breanna reported difficulty swallowing over the weekend with no apparent cause. She stated she has started a food journal in case it is related to food allergies. Breanna reported she did not know when her MBSS was scheduled and did not get a reminder call with appointment time/location information. She added that when she called on Monday (), they were unable to find her appointment and directed her to several other departments. Treatment Liquids Trialed Thin Solids Trialed Puree,Dysphagia Mechanical, Regular Administration Type Tea Spoon,Cup Single Sip,Self- Feeding Oral Strategies Upright at 90 degrees Pharyngeal Strategies Sitting Upright (90 deg), Effortful Swallow,Small Bites and Sips Treatment Activities Discussed use of food journal to track foods, seasonal allergies, and emotional states related to swallowing symptoms. Discussed rescheduling of MBSS as Breanna did not show for her scheduled swallow study on . Trialed oatmeal raisin cookie, catie cracker, catie cracker with peanut butter, oatmeal raisin cookie with vanilla pudding, and water with effortful swallow. Assessment Patient Response to Treatment Excellent Assessment of Improvement Breanna reported the most difficulty when eating the catie cracker with peanut butter, adding that it feels like the catie cracker gets stuck on the back of her tongue and she needs to swallow multiple times to get it down. Breanna reported the oatmeal raisin cookie was easier to eat than the catie cracker with peanut butter, though the sensation of the cookie getting stuck on the back of her tongue was still present. When eating an oatmeal raisin cookie with pudding, the sensation of it getting stuck was reduced. Breanna reported her swallowing has been better since about Monday after being severely difficult over the weekend. Breanna was in agreement with continued home exercise practice, tracking emotional states along with food journal , and rescheduling MBSS. Provided phone number for Diagnostic Imaging to reschedule. Diet Recommendations Recommendations Continue Current Diet Liquids Order Thin Diet Order Regular Medication Recommendations As Tolerated Aspiration Precautions Recommended Precautions Upright at 90 Degrees,Small Bites/Sips,Effortful Swallow Treatment Plan Appropriate for Continued Therapy Yes Therapy Recommendations Continue with oral motor exercises and adjust as needed once Breanna completes MBSS. Dysphagia Goals 1. Breanna will participate in an MBSS. 2. Breanna will perform safe swallow strategies with oral intake independently to reduce risk of aspiration. 3. Breanna will perform exercises to increase strength , coordination, and ROM of swallow musculature independently to reduce risk of aspiration and increase comfort with oral intake.
--- NOTE | 2021-07-28 16:20 | ST-OP ANOTE ---
Physical, Occupational & Speech Therapy At [facility] Speech Therapy Note Called Breanna to discuss plan of care. Breanna is in the process of scheduling a modified barium swallow study (MBSS) and encountered some insurance and billing issues. Cancelled scheduled appointments until MBSS is booked, at which time Breanna will call to schedule follow-up sessions. Breanna expressed agreement with new plan of care.
--- NOTE | 2021-08-27 09:11 | ST-OP ANOTE ---
Physical, Occupational & Speech Therapy At [facility] Speech Therapy Note Called Breanna to follow-up on scheduling a modified barium swallow study (MBSS). Breanna indicated there were some insurance and billing issues but she has figured it out and is planning on calling to schedule MBSS soon.
--- NOTE | 2021-09-29 09:36 | ST-OP ANOTE ---
Physical, Occupational & Speech Therapy At [facility] Speech Therapy Note Called and left voicemail for patient at 9:36 regarding scheduling a MBSS.
--- NOTE | 2021-10-05 10:10 | ST.IPDYTX ---
Visit Care Team Role Provider Type Luz Maria Serrano DO Family Provider Non-Staff Primary Care Provider Specialty: Medical Address: [address] [place] [address], [address] Email: Waqas Rivas MD Attending Provider Physician Referring Provider Specialty: Ear, Nose, Throat Address: [address] [place] [address], [address] Email: [email or web address] COSMETIC DENTIST Dysphagia Treatment COSMETIC DENTIST Dysphagia Treatment Start: 06/11/21 13:26 Freq: Status: Active Protocol: Document 10/05/21 10:06 CHEYANNE (Rec: 10/05/21 10:09 CHEYANNE [id number]) Dysphagia Treatment Visit Information Plan of Care Dates 06/04/2021 - 11/11/2021 Setting Assessment Location Outpatient Care Visit Type Note Type Discharge Summary Patient Information Identification Type Name Subjective Observations Left voicemail for Breanna notifying her she is being discharged due to length of time since previous appointment. Let her know she will need to obtain a new referral for speech therapy from her PCP if she would like to continue with services. Treatment Treatment Activities Left voicemail for Breanna notifying her she is being discharged due to length of time since previous appointment. Let her know she will need to obtain a new referral for speech therapy from her PCP if she would like to continue with services. Assessment Patient Response to Treatment Excellent Assessment of Improvement Patient was having difficulty scheduling a MBSS to assess swallow. Minimal progress made due to difficulty scheduling. Diet Recommendations Recommendations Continue Current Diet Liquids Order Thin Diet Order Regular Medication Recommendations As Tolerated Aspiration Precautions Recommended Precautions Upright at 90 Degrees,Small Bites/Sips,Effortful Swallow Treatment Plan Therapy Recommendations Discharging due to length of time since previous appointment. Notified pt she will need a new referral from her PCP for speech therapy and we will still recommend completion of a MBSS. Dysphagia Goals 1. Breanna will participate in an MBSS. 2. Breanna will perform safe swallow strategies with oral intake independently to reduce risk of aspiration. 3. Breanna will perform exercises to increase strength , coordination, and ROM of swallow musculature independently to reduce risk of aspiration and increase comfort with oral intake.
--- NOTE | 2021-10-05 10:19 | ST.OPDS ---
Visit Care Team Role Provider Type Luz Maria Serrano DO Family Provider Non-Staff Primary Care Provider Address: [address] [place] [address], [id number] Waqas Rivas MD Attending Provider Physician Referring Provider Address: [address] [place] [address], [id number] [employer] Treatment Note [employer] Treatment Note Start: 10/05/21 10:11 Freq: Status: Active Protocol: Document 10/05/21 10:11 CHEYANNE (Rec: 10/05/21 10:19 ZS [id number]) Speech Pathology Treatment Note Setting Treatment Setting Outpatient Care Visit Type Note Type Discharge Summary General Information General Information Breanna is a 40 year old woman with a history of bells palsy, mast cell disorder, nasal congestion due to a deviated septum, and dysphagia. She has had difficulty swallowing for the past 2-5 years with fluctuating severity. Breanna had a stroke in 2019, though swallowing difficulty pre- dated stroke symptoms. Breanna reported she had one this week and another one this weekend. She added that her family is currently sick. Breanna shared that her mother had at 40 years old due to a stroke. Breanna reported feeling like she is swallowing past a balloon when she swallows food and liquid. She added that her symptoms get worse through the day and in the evenings she avoids thick foods (e.g., pudding, peanut butter) and dry foods (e.g., crackers), because it feels like they get stuck in the back of her mouth/throat. She said she talks a lot for work and sometimes works 16 hours in a day. Breanna added that she needs to concentrate when she is swallowing, even with saliva and it takes a lot of effort to swallow. She sips water to help swallow saliva and avoids thick/dry foods when she is having difficulty swallowing. Breanna reported no pain when swallowing. 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 Subjective Identification Type Name Identification Reconciled With Medical Record Observations/Patient Presentation Left voicemail for Breanna notifying her she is being discharged due to length of time since previous appointment. Let her know she will need to obtain a new referral for speech therapy from her PCP if she would like to continue with services. Chief Complaint(s) Swallowing Objective Short Term Goals 1. Breanna will participate in a MBSS. 2. Breanna will perform safe swallow strategies with oral intake independently to reduce risk of aspiration. 3. Breanna will perform exercises to increase strength , coordination, and ROM of swallow musculature independently to reduce risk of aspiration and increase comfort with oral intake. [employer] Specialist Goals Breanna will safely tolerate least restrictive diet to meet her nutritional and hydration needs. Treatment Activities Left voicemail for Breanna notifying her she is being discharged due to length of time since previous appointment. Let her know she will need to obtain a new referral for speech therapy from her PCP if she would like to continue with services. Assessment Impairments Identified Dysphagia Assessment of Improvement Minimal progress made as Breanna was having difficulty scheduling MBSS and additional imaging was necessary to inform treatment. Plan Therapeutic Contents Swallowing/Feeding Therapy Recommendations Discharge from Speech Therapy Reason for Discharge Length of time since previous appointment.
== END 2021-10-05 10:39 | disposition home or self-care (01) ==
LOC: SP 10:30
PROVIDERS: Family Provider Family Medicine; PCP Family Medicine; Referring Provider Otolaryngology; Visit Provider Otolaryngology
DX: R13.10 Dysphagia, unspecified (principal)
CPT/HCPCS: 92526; 92610

== ENCOUNTER → 2022-03-23 13:37 | Outpatient (CLI) | payer OTHER, SELFPAY ==
[2019-04-18 02:38] VITALS: BMI 35.5
--- NOTE | 2022-03-23 | DI.MRI.S_ITS ---
PROCEDURE: MR HEAD/BRAIN WO CON INDICATIONS: Increasing headaches and memory loss TECHNIQUE: Noncontrast axial T1 spin echo, axial T2 fast spin echo, sagittal and axial FLAIR, coronal T2 fast spin echo, axial gradient echo, axial diffusion and ADC through the brain. COMPARISON: None. FINDINGS: Image quality: Excellent. CSF Spaces: Basal cisterns are patent. No extra-axial fluid collections. Ventricles are normal in size and shape. Brain: No intracranial masses or hemorrhage. Scattered punctate foci of increased T2 signal noted in the periventricular and subcortical white matter tracks. Robertson/white matter interface is normal. Brainstem appears normal. Diffusion-weighted images demonstrate no acute ischemic insult. No chronic ischemic insults. Normal intravascular flow voids are present. Skull and face: Calvarium has normal marrow signal. Orbits appear normal. Sinuses: Large right maxillary sinus mucous retention cyst versus polyp. Mild mucosal thickening in the right sphenoid sinus. The mastoids are clear. IMPRESSION: 1. No acute intracranial disease process. 2. No abnormal intracranial mass or mass effect. 3. No areas of acute or chronic infarction. 4. No intracranial hemorrhage. 5. Few small punctate foci of increased T2 signal in the periventricular and subcortical white matter. Finding is nonspecific may represent minimal chronic microvascular ischemic change, sequela of migraine headaches are less likely demyelinating process. Please correlate with clinical clinical data. 6. Mild right sphenoid sinusitis and large right maxillary sinus mucous retention cyst versus polyp. Dictated by: Apryl Ricci MD, PhD on 03/23/2022 at 14:51 Approved by: Apryl Ricci MD, PhD on 03/23/2022 at 14:57
== END ==
PROVIDERS: Family Provider Family Medicine; Referring Provider Family Medicine; Visit Provider Family Medicine
DX: R41.3 Other amnesia (principal); R51.9 Headache, unspecified; R00.2 Palpitations; Z92.89 Personal history of other medical treatment
CPT/HCPCS: 70551

== ENCOUNTER → 2024-05-17 08:42 | Outpatient (CLI) | payer OTHER, SELFPAY ==
[2024-05-13 11:46] VITALS: BMI 35.5
--- NOTE | 2024-05-17 08:43 | DI.MG.S_ITS ---
UNILATERAL LEFT DIGITAL DIAGNOSTIC MAMMOGRAM 3D/2D WITH ADDITIONAL VIEWS: 05/17/2024 CLINICAL: Additional evaluation requested from prior study. Comparison is made to exam dated: 04/15/2024 mammogram - [facility]. The breasts are heterogeneously dense, which may obscure small masses (category c / 51-75% glandular tissue). There are 0.7 cm grouped fine heterogeneous punctate calcifications in the left breast at 12 o'clock middle depth. These are seen in additional views. Possible associated focal asymmetry. No other significant masses or calcifications are seen in the breast. IMPRESSION: INCOMPLETE: NEED ADDITIONAL IMAGING EVALUATION The 0.7 cm grouped fine heterogeneous punctate calcifications in the left breast with possible associated focal asymmetry are indeterminate. An ultrasound is recommended for further evaluation and is scheduled to immediately follow this examination. Based on the Tyrer Cuzick model (a risk assessment model) the patient's lifetime risk is 7.8% and her 10 year risk is 1.3%. According to the ACR, ACS, and NCCN guidelines, an annual breast MRI exam along with mammogram is recommended if the patient's lifetime risk is 20% or greater. This exam was interpreted at Station ID: [id number]. NOTE: For mammograms, a report in lay terms will be sent to the patient. Approximately 15% of breast malignancies will not be visualized mammographically. In the management of a palpable breast mass, a negative mammogram must not discourage biopsy of a clinically suspicious lesion. Electronically Signed By: Gian Vigil M.D. aty/:05/17/2024 09:39:23 ACR BI-RADS Category 0: Incomplete: Need Additional Imaging Evaluation
--- NOTE | 2024-05-17 08:44 | DI.US.S_ITS ---
LIMITED ULTRASOUND OF LEFT BREAST AND AXILLA: 05/17/2024 CLINICAL: Patient returns today to evaluate a focal asymmetry in the left breast. Comparison is made to exams dated: 05/17/2024 mammogram - [facility], 04/15/2024 mammogram, 03/21/2023 mammogram, 03/21/2023 ultrasound, and 03/15/2023 mammogram - [facility]. Real-time ultrasound of the left breast 12-1 o'clock, 6 o'clock, retroareolar, and axilla regions was performed. Robertson scale images of the real-time examination were reviewed. No significant abnormalities were seen sonographically in the left breast or the left axilla. IMPRESSION: SUSPICIOUS There is no abnormality seen in the left breast to correspond with the described mammography finding of new grouped punctate, fine, heterogeneous calcifications in the central breast middle depth which are at a low suspicion for malignancy. A stereotactic guided breast biopsy is recommended for further evaluation. Findings and recommendations were discussed with the patient by Dr. Wilburn during today's examination. No sonographic abnormalities identified in the axilla. No axillary adenopathy. This exam was interpreted at Station ID: [id number]. Electronically Signed By: Gian Vigil M.D. aty/:05/17/2024 10:09:59 letter sent: Biopsy Required ACR BI-RADS Category 4A: Suspicious
== END ==
PROVIDERS: Family Provider Family Medicine; Referring Provider Physician Assistant; Visit Provider Physician Assistant
DX: R92.8 Other abnormal and inconclusive findings on diagnostic imaging of breast (principal); R92.1 Mammographic calcification found on diagnostic imaging of breast; R92.333 Mammographic heterogeneous density, bilateral breasts
CPT/HCPCS: 76642; 77065; G0279